=== PATIENT | male | born 1955 | race African-American/Black ===

== ENCOUNTER 2016-07-04 01:47 | Emergency (ER) | payer SELFPAY ==
[~2016-07-04] VITALS: Ht 185.4 cm; Wt 109.0 kg
[2016-07-04] MEDS ORDERED: HALOPERIDOL LACTATE 5MG/ML VIAL IM ONE (03:00)
[2016-07-04] MEDS ORDERED: LORAZEPAM 2MG/ML CPJ IM ONE (03:00)
[2016-07-04 03:15] LABS: BASOPHILS % 0.5 % (0.0-2.0); EOSINOPHILS % 0.4 % (0.0-5.0); HEMOGLOBIN. 13.2 g/dL (14.0-18.0); MEAN CORPUSCULAR HEMOGLOBIN 28.7 pg (28.0-32.0); MEAN PLATELET VOLUME 7.3 fl (7.4-10.4); MONOCYTES % 6.8 % (2.0-8.0); NEUTROPHILS % 77.3 % (40.0-76.0); PLATELET 241 x1000/uL (130-400); RED CELL DISTRIBUTION WIDTH 13.8 % (11.6-14.6); WHITE BLOOD COUNT 11.8 x1000/uL (4.5-11.0)
[2016-07-04 03:25] LABS: ALANINE AMINOTRANSFERASE 37 IU/L (13-61); ALBUMIN 3.8 g/dL (3.4-5.0); ANION GAP 14; CALCIUM 8.6 mg/dL (8.5-10.1); CARBON DIOXIDE 23 mEq/L (21-32); CHLORIDE 112 mEq/L (98-107); ETHANOL BLOOD < 10 mg/dL; INDEX HEMOLYSI 1 (1-3); INDEX ICTERIC 1 (1-4); INDEX LIPEMIC 1 (1-3); UREA NITROGEN BLOOD 27 mg/dL (7-21); eGFR > 60 mL/min (>60)
[2016-07-04 05:37] LABS: CLARITY URINE CLEAR (CLEAR); COLOR URINE YELLOW (YELLOW); GLUCOSE URINE NEGATIVE (NEGATIVE); KETONES URINE NEGATIVE (NEGATIVE); LEUKOCYTE ESTERASE URINE NEGATIVE (NEGATIVE); NITRITE URINE NEGATIVE (NEGATIVE); OCCULT BLOOD URINE NEGATIVE (NEGATIVE); PROTEIN URINE NEGATIVE (NEGATIVE); SPECIFIC GRAVITY URINE 1.022 (1.005-1.030)
[2016-07-04 06:11] LABS: *AMPHETAMINES SCREEN URINE NEGATIVE (NEGATIVE); *BARBITURATES SCREEN URINE NEGATIVE (NEGATIVE); *BENZODIAZEPINES SCREEN URINE NEGATIVE (NEGATIVE); *COCAINE SCREEN URINE PRESUMTIVE POSITIVE (NEGATIVE); CANNABINOID URINE SCREEN PRESUMTIVE POSITIVE (NEGATIVE); ECSTASY MDMA SCREEN URINE NEGATIVE (NEGATIVE); METHADONE URINE SCREEN NEGATIVE (NEGATIVE); OPIATES URINE SCREEN PRESUMTIVE POSITIVE (NEGATIVE); PHENCYCLIDINE URINE SCREEN PRESUMTIVE POSITIVE (NEGATIVE)
[2016-07-04 07:33] VITALS: BP 137/87
== END 2016-07-04 10:11 | disposition home or self-care (01) ==
LOC: ER 02:00
DX: T40.991A Poisoning by other psychodysleptics [hallucinogens], accidental (unintentional), initial encounter (principal); T40.5X1A Poisoning by cocaine, accidental (unintentional), initial encounter; T40.7X1A Poisoning by cannabis (derivatives), accidental (unintentional), initial encounter; T40.2X1A Poisoning by other opioids, accidental (unintentional), initial encounter; F16.921 Hallucinogen use, unspecified with intoxication with delirium; F10.229 Alcohol dependence with intoxication, unspecified; Y90.0 Blood alcohol level of less than 20 mg/100 ml; Y92.488 Other paved roadways as the place of occurrence of the external cause
CPT/HCPCS: 36415; 80053; 80305; 81003; 85025; 96372; 99284; G0482; J1630; J2060; Z7610

== ENCOUNTER 2016-07-04 11:41 | Emergency (ER) | payer SELFPAY ==
[~2016-07-04] VITALS: Ht 188 cm; Wt 86.0 kg
[2016-07-04 11:54] VITALS: BP 171/98
== END 2016-07-04 12:21 | disposition left against medical advice (07) ==
LOC: ER 11:49
DX: F19.10 Other psychoactive substance abuse, uncomplicated (principal); H10.9 Unspecified conjunctivitis; F99 Mental disorder, not otherwise specified; F12.10 Cannabis abuse, uncomplicated; I10 Essential (primary) hypertension; E11.9 Type 2 diabetes mellitus without complications
CPT/HCPCS: 99283

== ENCOUNTER 2017-12-06 15:51 | Inpatient (IN) | payer MEDICAID, OTHER ==
[~2017-12-06] VITALS: Ht 182.9 cm; Wt 113.2 kg
[2017-12-06 17:10] LABS: BASOPHILS % 0.3 % (0.0-2.0); CHLORIDE 106 mEq/L (98-107); EOSINOPHILS % 0.9 % (0.0-5.0); HEMATOCRIT. 42.1 % (42.0-52.0); HEMOGLOBIN. 13.6 g/dL (14.0-18.0); LYMPHOCYTES % 18.7 % (20.0-50.0); MEAN CORPUSCULAR HEMOGLOBIN 29.1 pg (28.0-32.0); MEAN CORPUSCULAR VOLUME 90.3 fL (80.0-94.0); MEAN PLATELET VOLUME 7.6 fl (7.4-10.4); MONOCYTES % 6.3 % (2.0-8.0); NEUTROPHILS % 73.8 % (40.0-76.0); PLATELET 247 x1000/uL (130-400); RED BLOOD CELL COUNT 4.66 mill/uL (4.7-6.1); RED CELL DISTRIBUTION WIDTH 14.8 % (11.6-14.6)
[2017-12-06 17:12] LABS: INR 1.1; PROTHROMBIN TIME 10.7 sec (9.1-11.1)
[2017-12-06] MEDS ORDERED: ACETAMINOPHEN 325MG TABLET PO ONE (18:15)
[2017-12-06] MEDS ORDERED: ONDANSETRON HCL 4MG/2ML VIAL IV STA (19:24)
[2017-12-06] MEDS ORDERED: MORPHINE SULFATE 4 MG/ML CPJ (NOT FOR IM USE) IV STA (19:24)
[2017-12-06] MEDS ORDERED: DILTIAZEM HCL 5MG/ML 5ML VIAL IV ONE (19:30)
[2017-12-06] MEDS ORDERED: NITROGLYCERIN OINT 1GM/INCH UDPKT TD ONE (19:30)
[2017-12-07 02:50] VITALS: BP 106/60
[2017-12-07] MEDS ORDERED: LORAZEPAM 2MG/ML CPJ IV PRN (03:45)
[2017-12-07] MEDS ORDERED: MORPHINE SULFATE 4 MG/ML CPJ (NOT FOR IM USE) IV PRN (03:45)
[2017-12-07 04:00] VITALS: BP 106/68
[2017-12-07] MEDS ORDERED: ONDANSETRON 4MG ODT PO PRN (04:15)
[2017-12-07] MEDS ORDERED: ENOXAPARIN 120MG/0.8ML SYR SUBCUT SCH (06:00)
[2017-12-07 07:23] LABS: BASOPHILS % 0.3 % (0.0-2.0); EOSINOPHILS % 1.3 % (0.0-5.0); HEMOGLOBIN. 13.1 g/dL (14.0-18.0); LYMPHOCYTES % 30.5 % (20.0-50.0); MEAN CORPUSCULAR HEMOGLOBIN 29.4 pg (28.0-32.0); MEAN PLATELET VOLUME 7.7 fl (7.4-10.4); NEUTROPHILS % 60.9 % (40.0-76.0); PLATELET 229 x1000/uL (130-400); RED BLOOD CELL COUNT 4.45 mill/uL (4.7-6.1); RED CELL DISTRIBUTION WIDTH 14.4 % (11.6-14.6)
[2017-12-07 08:00] VITALS: BP 115/62
[2017-12-07 08:00] LABS: CHLORIDE 109 mEq/L (98-107)
[2017-12-07] MEDS ORDERED: METOPROLOL TARTRATE 50MG TABLET PO SCH (09:00)
[2017-12-07] MEDS ORDERED: FUROSEMIDE 40MG TABLET PO SCH (09:00)
[2017-12-07] MEDS ORDERED: ASPIRIN 325MG EC TABLET PO SCH (09:00)
[2017-12-07] MEDS ORDERED: LISINOPRIL 5MG TABLET PO SCH (09:00)
[2017-12-07 09:03] LABS: *AMPHETAMINES SCREEN URINE PRESUMTIVE POSITIVE (NEGATIVE); *BARBITURATES SCREEN URINE NEGATIVE (NEGATIVE); *BENZODIAZEPINES SCREEN URINE NEGATIVE (NEGATIVE); *COCAINE SCREEN URINE PRESUMTIVE POSITIVE (NEGATIVE)
[2017-12-07 09:04] LABS: CANNABINOID URINE SCREEN PRESUMTIVE POSITIVE (NEGATIVE); METHADONE URINE SCREEN NEGATIVE (NEGATIVE); OPIATES URINE SCREEN PRESUMTIVE POSITIVE (NEGATIVE); PHENCYCLIDINE URINE SCREEN PRESUMTIVE POSITIVE (NEGATIVE)
[2017-12-07 10:52] LABS: T4 FREE 1.03 ng/dL (0.76-1.46)
[2017-12-07 12:00] VITALS: BP 97/66
[2017-12-07] MEDS ORDERED: IPRATROPIUM/ALBUTEROL 0.5-3(2.5)MG/3ML NEB HHN PRN (12:30)
[2017-12-07] MEDS ORDERED: DIGOXIN 500MCG/2ML AMP IV SCH (13:00)
[2017-12-07 16:00] VITALS: BP 123/80
[2017-12-07] MEDS ORDERED: HYDROCODONE/ACETAMINOPHEN 5/325MG TABLET PO PRN (16:45)
[2017-12-07 17:06] LABS: CREATINE KINASE MB FRACTION 1.5 ng/mL (0.5-3.6)
== END 2017-12-07 17:37 | disposition left against medical advice (07) | DRG 816 ==
LOC: ER 15:51 → 5WST 20:37 → ENRESERV 12-07 01:46
PROVIDERS: ADMIT Internal Medicine; ATTEND Internal Medicine
DX: T40.5X1A Poisoning by cocaine, accidental (unintentional), initial encounter (principal); I50.41 Acute combined systolic (congestive) and diastolic (congestive) heart failure; N17.9 Acute kidney failure, unspecified; I11.0 Hypertensive heart disease with heart failure; E44.1 Mild protein-calorie malnutrition; I48.91 Unspecified atrial fibrillation; E78.5 Hyperlipidemia, unspecified; F10.10 Alcohol abuse, uncomplicated; I73.9 Peripheral vascular disease, unspecified; F15.10 Other stimulant abuse, uncomplicated; F11.10 Opioid abuse, uncomplicated; F12.10 Cannabis abuse, uncomplicated; F17.210 Nicotine dependence, cigarettes, uncomplicated; M13.862 Other specified arthritis, left knee; Z71.51 Drug abuse counseling and surveillance of drug abuser; Z68.33 Body mass index [BMI] 33.0-33.9, adult; Y92.89 Other specified places as the place of occurrence of the external cause
CPT/HCPCS: 36415; 71045; 73562; 80048; 80053; 80061; 80305; 82550; 82553; 83036; 83880; 84439; 84443; 84484; 85025; 85379; 85610; 93005; 93306; 93970; 94640; 96372; 96374; 96375; 97162; 99285; J1160; J1650; J2270; J2405; J7620

== ENCOUNTER 2017-12-24 17:09 | Inpatient (IN) | payer MEDICAID, OTHER ==
[~2017-12-24] VITALS: Ht 182.9 cm; Wt 90.7 kg
[2017-12-24] MEDS ORDERED: SODIUM CHLORIDE 0.9% 1,000 ML IV ONE (17:49)
[2017-12-24 17:55] LABS: BASOPHILS % 0.7 % (0.0-2.0); EOSINOPHILS % 1.6 % (0.0-5.0); HEMOGLOBIN. 12.7 g/dL (14.0-18.0); LYMPHOCYTES % 22.6 % (20.0-50.0); MEAN CORPUSCULAR HEMOGLOBIN 29.2 pg (28.0-32.0); MEAN CORPUSCULAR VOLUME 89.6 fL (80.0-94.0); MONOCYTES % 8.6 % (2.0-8.0); NEUTROPHILS % 66.5 % (40.0-76.0); PLATELET 204 x1000/uL (130-400); RED BLOOD CELL COUNT 4.35 mill/uL (4.7-6.1); RED CELL DISTRIBUTION WIDTH 14.4 % (11.6-14.6)
[2017-12-24 18:00] LABS: CHLORIDE 110 mEq/L (98-107)
[2017-12-24] MEDS ORDERED: LORAZEPAM 2MG/ML CPJ IV ONE ×2 (18:00→20:15)
[2017-12-24] MEDS ORDERED: NITROGLYCERIN 0.4MG TABLET SL SL PRN (18:00)
[2017-12-24] MEDS ORDERED: ASPIRIN 81MG TABLET PO ONE (18:00)
[2017-12-24 18:02] LABS: INR 1.1; PROTHROMBIN TIME 11.1 sec (9.1-11.1)
[2017-12-24 18:06] LABS: ETHANOL BLOOD < 10 mg/dL
[2017-12-24 18:09] LABS: D-DIMER 1.21 mg/L FEU (<0.50); PARTIAL THROMBOPLASTIN TIME 25.6 sec (23.4-31.0)
[2017-12-24] MEDS ORDERED: FUROSEMIDE 20MG/2ML VIAL IVP ONE (19:15)
[2017-12-24 21:09] LABS: CLARITY URINE CLEAR (CLEAR); COLOR URINE YELLOW (YELLOW); KETONES URINE NEGATIVE (NEGATIVE); LEUKOCYTE ESTERASE URINE NEGATIVE (NEGATIVE); NITRITE URINE NEGATIVE (NEGATIVE); OCCULT BLOOD URINE NEGATIVE (NEGATIVE); PH URINE 5.5 (4.5-8.0); PROTEIN URINE NEGATIVE (NEGATIVE); SPECIFIC GRAVITY URINE 1.015 (1.005-1.030)
[2017-12-24 21:19] LABS: *BENZODIAZEPINES SCREEN URINE NEGATIVE (NEGATIVE); *COCAINE SCREEN URINE PRESUMTIVE POSITIVE (NEGATIVE)
[2017-12-24 21:20] LABS: *BARBITURATES SCREEN URINE NEGATIVE (NEGATIVE); CANNABINOID URINE SCREEN PRESUMTIVE POSITIVE (NEGATIVE); METHADONE URINE SCREEN NEGATIVE (NEGATIVE); OPIATES URINE SCREEN NEGATIVE (NEGATIVE); PHENCYCLIDINE URINE SCREEN PRESUMTIVE POSITIVE (NEGATIVE)
[2017-12-24 21:21] LABS: *AMPHETAMINES SCREEN URINE NEGATIVE (NEGATIVE)
[2017-12-24] MEDS ORDERED: IOHEXOL-350 100 ML BOTTLE ONE (21:29)
[2017-12-25 09:47] VITALS: BP 144/111
[2017-12-25 12:00] VITALS: BP 108/64
[2017-12-25] MEDS ORDERED: ASPIRIN 81MG TABLET PO SCH (12:00)
[2017-12-25] MEDS ORDERED: MORPHINE SULFATE 4 MG/ML CPJ (NOT FOR IM USE) IV PRN (12:00)
[2017-12-25 16:00] VITALS: BP 131/89
[2017-12-25] MEDS ORDERED: CLONIDINE 0.1MG TABLET PO PRN (16:15)
[2017-12-25] MEDS ORDERED: FUROSEMIDE 40MG TABLET PO SCH (21:00)
== END 2017-12-25 18:12 | disposition left against medical advice (07) | DRG 816 ==
LOC: ER 17:09 → 7WST 12-25 06:18 → EDBEDREQ 12-25 06:23 → EDBEDREQDT 12-25 06:23 → EDBEDREQTM 12-25 06:23 → ENRESERV 12-25 07:08
PROVIDERS: ADMIT Internal Medicine; ATTEND Internal Medicine
DX: T40.5X1A Poisoning by cocaine, accidental (unintentional), initial encounter (principal); I50.23 Acute on chronic systolic (congestive) heart failure; N17.9 Acute kidney failure, unspecified; E87.8 Other disorders of electrolyte and fluid balance, not elsewhere classified; I42.9 Cardiomyopathy, unspecified; E44.1 Mild protein-calorie malnutrition; I48.91 Unspecified atrial fibrillation; D64.9 Anemia, unspecified; I11.0 Hypertensive heart disease with heart failure; F17.200 Nicotine dependence, unspecified, uncomplicated; F14.188 Cocaine abuse with other cocaine-induced disorder; Y92.89 Other specified places as the place of occurrence of the external cause; Z68.27 Body mass index [BMI] 27.0-27.9, adult
CPT/HCPCS: 36415; 71045; 71275; 80053; 80305; 81003; 83880; 84484; 85025; 85379; 85610; 85730; 93005; 96361; 96374; 96375; 96376; 99285; G0482; J1940; J2060; J7030; Q9967

== ENCOUNTER 2018-02-10 13:12 | Inpatient (IN) | payer MEDICAID ==
[~2018-02-10] VITALS: Ht 185.4 cm; Wt 112.5 kg
[2018-02-10 14:17] LABS: BASOPHILS % 0.5 % (0.0-2.0); EOSINOPHILS % 1.2 % (0.0-5.0); HEMATOCRIT. 43.5 % (42.0-52.0); HEMOGLOBIN. 14.5 g/dL (14.0-18.0); LYMPHOCYTES % 27.5 % (20.0-50.0); MEAN CORPUSCULAR VOLUME 87.1 fL (80.0-94.0); MEAN PLATELET VOLUME 7.7 fl (7.4-10.4); NEUTROPHILS % 62.8 % (40.0-76.0); PLATELET 233 x1000/uL (130-400); RED BLOOD CELL COUNT 4.99 mill/uL (4.7-6.1); RED CELL DISTRIBUTION WIDTH 14.3 % (11.6-14.6)
[2018-02-10 14:24] LABS: INR 1.1; PARTIAL THROMBOPLASTIN TIME 27.9 sec (23.4-31.0); PROTHROMBIN TIME 11.3 sec (9.1-11.1)
[2018-02-10 14:26] LABS: CHLORIDE 109 mEq/L (98-107); ETHANOL BLOOD < 10 mg/dL
[2018-02-10] MEDS ORDERED: ASPIRIN 81MG TABLET PO ONE (14:30)
[2018-02-10] MEDS ORDERED: FUROSEMIDE 40MG/4ML VIAL IVP ONE (15:15)
[2018-02-10 19:51] LABS: *AMPHETAMINES SCREEN URINE NEGATIVE (NEGATIVE); *BARBITURATES SCREEN URINE NEGATIVE (NEGATIVE); *BENZODIAZEPINES SCREEN URINE NEGATIVE (NEGATIVE); *COCAINE SCREEN URINE PRESUMTIVE POSITIVE (NEGATIVE)
[2018-02-10 19:53] LABS: CANNABINOID URINE SCREEN PRESUMTIVE POSITIVE (NEGATIVE); METHADONE URINE SCREEN NEGATIVE (NEGATIVE); OPIATES URINE SCREEN NEGATIVE (NEGATIVE); PHENCYCLIDINE URINE SCREEN PRESUMTIVE POSITIVE (NEGATIVE)
[2018-02-10 21:50] VITALS: BP 137/94
[2018-02-10 22:35] VITALS: BP 137/94
[2018-02-11] VITALS: BP 124/69
[2018-02-11] MEDS ORDERED: ACETAMINOPHEN 650MG/20.3ML UDC PO PRN
[2018-02-11] MEDS ORDERED: ACETAMINOPHEN 325MG TABLET PO PRN (02:19)
[2018-02-11 04:00] VITALS: BP 109/66
[2018-02-11 07:15] LABS: CHLORIDE 106 mEq/L (98-107)
[2018-02-11 07:27] LABS: HEMATOCRIT. 47.6 % (42.0-52.0); HEMOGLOBIN. 15.3 g/dL (14.0-18.0); MEAN CORPUSCULAR HEMOGLOBIN 28.2 pg (28.0-32.0); MEAN CORPUSCULAR VOLUME 87.6 fL (80.0-94.0); MEAN PLATELET VOLUME 8.1 fl (7.4-10.4); PLATELET 247 x1000/uL (130-400); RED BLOOD CELL COUNT 5.43 mill/uL (4.7-6.1); RED CELL DISTRIBUTION WIDTH 14.4 % (11.6-14.6)
[2018-02-11 07:37] LABS: CREATINE KINASE 107 IU/L (39-308); CREATINE KINASE MB FRACTION 1.8 ng/mL (0.5-3.6)
[2018-02-11] MEDS: FUROSEMIDE 40MG/4ML VIAL IVP SCH (09:42)
[2018-02-11] MEDS: APIXABAN 5 MG TABLET PO SCH ×2 (09:42→17:25)
[2018-02-11 10:55] VITALS: BP 101/60
[2018-02-11 12:00] VITALS: BP 129/93
[2018-02-11] MEDS: DILTIAZEM HCL 60MG TABLET PO SCH ×2 (14:00→21:01)
[2018-02-11 14:09] LABS: PLATELET ESTIMATE NORMAL
[2018-02-11 20:00] VITALS: BP 120/75
[2018-02-11 20:05] LABS: CREATINE KINASE MB FRACTION 1.7 ng/mL (0.5-3.6)
[2018-02-11] MEDS: HYDROCODONE/ACETAMINOPHEN 5/325MG TABLET PO PRN (23:33)
[2018-02-12] VITALS: BP 126/72
[2018-02-12 08:00] VITALS: BP 113/83
[2018-02-12] MEDS: DILTIAZEM HCL 60MG TABLET PO SCH (08:05)
[2018-02-12] MEDS: FUROSEMIDE 40MG/4ML VIAL IVP SCH (08:17)
[2018-02-12] MEDS: HYDROCODONE/ACETAMINOPHEN 5/325MG TABLET PO PRN (08:18)
[2018-02-12] MEDS: APIXABAN 5 MG TABLET PO SCH (08:19)
[2018-02-12 09:38] LABS: CREATINE KINASE 85 IU/L (39-308)
[2018-02-12 09:40] LABS: CREATINE KINASE MB FRACTION 1.5 ng/mL (0.5-3.6)
[2018-02-12 12:00] VITALS: BP 107/69
[2018-02-12] MEDS ORDERED: DILTIAZEM HCL 30MG TABLET PO SCH (12:00)
[2018-02-12 13:48] VITALS: BP 107/69
[2018-02-12 16:00] VITALS: BP 103/76
== END 2018-02-12 16:26 | disposition home or self-care (01) | DRG 194 ==
LOC: EDBEDREQTM 15:28 → EDBEDREQ 15:28 → ER 15:58 → 5WST 15:59 → ENRESERV 19:32
PROVIDERS: ADMIT Internal Medicine; ATTEND Internal Medicine
DX: I13.0 Hypertensive heart and chronic kidney disease with heart failure and stage 1 through stage 4 chronic kidney disease, or unspecified chronic kidney disease (principal); E87.8 Other disorders of electrolyte and fluid balance, not elsewhere classified; Z79.01 Long term (current) use of anticoagulants; I50.23 Acute on chronic systolic (congestive) heart failure; I48.2 Chronic atrial fibrillation; F31.9 Bipolar disorder, unspecified; E78.5 Hyperlipidemia, unspecified; F14.90 Cocaine use, unspecified, uncomplicated; F16.90 Hallucinogen use, unspecified, uncomplicated; J45.909 Unspecified asthma, uncomplicated; N18.9 Chronic kidney disease, unspecified; Z91.19 Patient's noncompliance with other medical treatment and regimen; Z71.51 Drug abuse counseling and surveillance of drug abuser; I48.1 Persistent atrial fibrillation
CPT/HCPCS: 36415; 71045; 80048; 80305; 82550; 82553; 83735; 83880; 84484; 93005; 96374; 99291; G0482; J1940

== ENCOUNTER 2018-05-12 03:03 | Inpatient (IN) | payer MEDICAID ==
[~2018-05-12] VITALS: Ht 182.9 cm; Wt 102.2 kg
[2018-05-12] VITALS (38 sets, daily range): BP systolic 93–204; BP diastolic 39–173
[2018-05-12] MEDS ORDERED: ASPIRIN 81MG TABLET PO ONE (04:00)
[2018-05-12] MEDS ORDERED: LORAZEPAM 2MG/ML CPJ IV ONE (04:15)
[2018-05-12 04:42] LABS: BASOPHILS % 0.5 % (0.0-2.0); EOSINOPHILS % 1.1 % (0.0-5.0); HEMATOCRIT. 38.4 % (42.0-52.0); HEMOGLOBIN. 12.5 g/dL (14.0-18.0); LYMPHOCYTES % 23.3 % (20.0-50.0); MEAN CORPUSCULAR HEMOGLOBIN 28.8 pg (28.0-32.0); MEAN PLATELET VOLUME 7.5 fl (7.4-10.4); NEUTROPHILS % 67.1 % (40.0-76.0); PLATELET 198 x1000/uL (130-400); RED BLOOD CELL COUNT 4.36 mill/uL (4.7-6.1); RED CELL DISTRIBUTION WIDTH 15.4 % (11.6-14.6)
[2018-05-12 04:48] LABS: CHLORIDE 110 mEq/L (98-107)
[2018-05-12 04:51] LABS: INR 1.1; PARTIAL THROMBOPLASTIN TIME 27.3 sec (23.4-31.0); PROTHROMBIN TIME 11.3 sec (9.1-11.1)
[2018-05-12 04:53] LABS: ETHANOL BLOOD < 10 mg/dL
[2018-05-12] MEDS ORDERED: SODIUM CHLORIDE 0.9% 500 ML IV ONE (05:00)
[2018-05-12] MEDS ORDERED: DILTIAZEM HCL 5MG/ML 5ML VIAL IV ONE (06:00)
[2018-05-12] MEDS ORDERED: DILTIAZEM HCL 30MG TABLET PO ONE (06:00)
[2018-05-12 09:38] LABS: *AMPHETAMINES SCREEN URINE NEGATIVE (NEGATIVE); *BARBITURATES SCREEN URINE NEGATIVE (NEGATIVE); *BENZODIAZEPINES SCREEN URINE NEGATIVE (NEGATIVE); *COCAINE SCREEN URINE PRESUMTIVE POSITIVE (NEGATIVE); METHADONE URINE SCREEN NEGATIVE (NEGATIVE); OPIATES URINE SCREEN NEGATIVE (NEGATIVE)
[2018-05-12 09:39] LABS: CANNABINOID URINE SCREEN PRESUMTIVE POSITIVE (NEGATIVE); PHENCYCLIDINE URINE SCREEN PRESUMTIVE POSITIVE (NEGATIVE)
[2018-05-12] MEDS ORDERED: ASPI-1158 MT (13:19)
[2018-05-12] MEDS ORDERED: DILTIAZEM HCL 30MG TABLET PO SCH (14:00)
[2018-05-12] MEDS: LOSARTAN POTASSIUM 25 MG TABLET PO SCH (14:07)
[2018-05-12] MEDS ORDERED: DILTIAZEM HCL 5MG/ML 5ML VIAL IV NR ×2 (14:15→15:30)
[2018-05-12] MEDS ORDERED: DILTIAZEM HCL 5MG/ML 5ML VIAL IV PRN (14:15)
[2018-05-12] MEDS ORDERED: QUETIAPINE FUMARATE 50MG TABLET PO SCH (15:00)
[2018-05-12] MEDS ORDERED: DIPHENHYDRAMINE 50MG/ML VIAL IV NR (15:00)
[2018-05-12] MEDS ORDERED: HALOPERIDOL LACTATE 5MG/ML VIAL IM PRN (15:00)
[2018-05-12] MEDS: LORAZEPAM 2MG/ML CPJ IV PRN ×2 (15:11→21:16)
[2018-05-12] MEDS ORDERED: LORAZEPAM 2MG/ML CPJ IV PRN (15:15)
[2018-05-12] MEDS: QUETIAPINE FUMARATE 50MG TABLET PO SCH (17:35)
[2018-05-12] MEDS: DILTIAZEM HCL 125 MG in DEXT 5% WATER 100 ML IV SCH (18:23)
[2018-05-12] MEDS: HALOPERIDOL LACTATE 5MG/ML VIAL IM PRN (21:16)
[2018-05-12] MEDS: DILTIAZEM HCL 60MG TABLET PO SCH (22:00)
[2018-05-13] VITALS (95 sets, daily range): BP systolic 103–191; BP diastolic 45–130
[2018-05-13] MEDS: HALOPERIDOL LACTATE 5MG/ML VIAL IM PRN ×2 (03:29→20:34)
[2018-05-13] MEDS: LORAZEPAM 2MG/ML CPJ IV PRN ×5 (03:29→22:08)
[2018-05-13] MEDS: DEXT 5%/0.45% NACL 1000ML 1,000 ML IV SCH ×3 (05:45→23:25)
[2018-05-13] MEDS: DILTIAZEM HCL 60MG TABLET PO SCH ×3 (05:46→22:00)
[2018-05-13 06:41] LABS: BASOPHILS % 0.3 % (0.0-2.0); EOSINOPHILS % 0.5 % (0.0-5.0); HEMOGLOBIN. 12.6 g/dL (14.0-18.0); LYMPHOCYTES % 16.1 % (20.0-50.0); MEAN CORPUSCULAR HEMOGLOBIN 28.5 pg (28.0-32.0); MEAN CORPUSCULAR VOLUME 87.9 fL (80.0-94.0); MEAN PLATELET VOLUME 7.6 fl (7.4-10.4); MONOCYTES % 5.2 % (2.0-8.0); NEUTROPHILS % 77.9 % (40.0-76.0); PLATELET 208 x1000/uL (130-400); RED BLOOD CELL COUNT 4.44 mill/uL (4.7-6.1); RED CELL DISTRIBUTION WIDTH 15.8 % (11.6-14.6)
[2018-05-13 06:55] LABS: CHLORIDE 112 mEq/L (98-107)
[2018-05-13] MEDS: LOSARTAN POTASSIUM 25 MG TABLET PO SCH (09:00)
[2018-05-13] MEDS: QUETIAPINE FUMARATE 50MG TABLET PO SCH ×2 (09:00→16:45)
[2018-05-13] MEDS ORDERED: LIDOCAINE HCL 1% 20ML VIAL (Pyxis) INJ ONE (09:41)
[2018-05-13] MEDS: DILTIAZEM HCL 125 MG in DEXT 5% WATER 100 ML IV SCH (13:20)
[2018-05-13] MEDS: DIPHENHYDRAMINE 50MG/ML VIAL IV PRN (16:45)
[2018-05-14] VITALS (96 sets, daily range): BP systolic 95–155; BP diastolic 48–109
[2018-05-14] MEDS: LORAZEPAM 2MG/ML CPJ IV PRN ×4 (01:13→17:29)
[2018-05-14] MEDS: DILTIAZEM HCL 125 MG in DEXT 5% WATER 100 ML IV SCH (03:53)
[2018-05-14] MEDS: HALOPERIDOL LACTATE 5MG/ML VIAL IM PRN (04:43)
[2018-05-14] MEDS: DILTIAZEM HCL 60MG TABLET PO SCH ×3 (06:00→21:45)
[2018-05-14 06:03] LABS: BASOPHILS % 0.2 % (0.0-2.0); EOSINOPHILS % 0.3 % (0.0-5.0); HEMATOCRIT. 41.6 % (42.0-52.0); HEMOGLOBIN. 13.4 g/dL (14.0-18.0); LYMPHOCYTES % 16.6 % (20.0-50.0); MEAN CORPUSCULAR HEMOGLOBIN 28.6 pg (28.0-32.0); MEAN CORPUSCULAR VOLUME 89.1 fL (80.0-94.0); MEAN PLATELET VOLUME 7.7 fl (7.4-10.4); MONOCYTES % 7.2 % (2.0-8.0); NEUTROPHILS % 75.7 % (40.0-76.0); PLATELET 199 x1000/uL (130-400); RED BLOOD CELL COUNT 4.67 mill/uL (4.7-6.1); RED CELL DISTRIBUTION WIDTH 15.8 % (11.6-14.6)
[2018-05-14 06:07] LABS: CHLORIDE 109 mEq/L (98-107)
[2018-05-14] MEDS: LOSARTAN POTASSIUM 25 MG TABLET PO SCH (09:00)
[2018-05-14] MEDS: QUETIAPINE FUMARATE 50MG TABLET PO SCH ×2 (09:00→17:04)
[2018-05-14] MEDS: DEXT 5%/0.45% NACL 1000ML 1,000 ML IV SCH ×2 (09:27→19:47)
[2018-05-14] MEDS: PANTOPRAZOLE SODIUM 40 MG/VIAL IV SCH (09:27)
[2018-05-14] MEDS ORDERED: ENOXAPARIN 30MG/0.3ML SYR SUBCUT SCH (10:30)
[2018-05-14] MEDS ORDERED: ENOXAPARIN 80MG/0.8ML SYR SUBCUT NR (12:00)
[2018-05-14] MEDS: DIGOXIN 500MCG/2ML AMP IV SCH ×2 (12:57→17:57)
[2018-05-14] MEDS: ENOXAPARIN 120MG/0.8ML SYR SUBCUT SCH (20:29)
[2018-05-15] VITALS (59 sets, daily range): BP systolic 97–143; BP diastolic 39–90
[2018-05-15] MEDS: LORAZEPAM 2MG/ML CPJ IV PRN ×6 (00:30→22:32)
[2018-05-15] MEDS: DIPHENHYDRAMINE 50MG/ML VIAL IV PRN ×3 (02:24→16:59)
[2018-05-15] MEDS: DEXT 5%/0.45% NACL 1000ML 1,000 ML IV SCH ×2 (05:31→17:11)
[2018-05-15] MEDS: DILTIAZEM HCL 125 MG in DEXT 5% WATER 100 ML IV SCH (05:39)
[2018-05-15] MEDS: DILTIAZEM HCL 60MG TABLET PO SCH ×3 (05:40→22:00)
[2018-05-15 06:39] LABS: BASOPHILS % 0.3 % (0.0-2.0); HEMATOCRIT. 42.9 % (42.0-52.0); HEMOGLOBIN. 13.7 g/dL (14.0-18.0); MEAN CORPUSCULAR HEMOGLOBIN 28.7 pg (28.0-32.0); MEAN PLATELET VOLUME 7.7 fl (7.4-10.4); MONOCYTES % 6.3 % (2.0-8.0); NEUTROPHILS % 68.4 % (40.0-76.0); PLATELET 204 x1000/uL (130-400); RED BLOOD CELL COUNT 4.76 mill/uL (4.7-6.1); RED CELL DISTRIBUTION WIDTH 16.1 % (11.6-14.6)
[2018-05-15 06:43] LABS: CHLORIDE 110 mEq/L (98-107)
[2018-05-15 07:07] LABS: DIGOXIN 0.7 ng/mL (0.9-2.0)
[2018-05-15] MEDS: LOSARTAN POTASSIUM 25 MG TABLET PO SCH (07:54)
[2018-05-15] MEDS: QUETIAPINE FUMARATE 50MG TABLET PO SCH (07:54)
[2018-05-15] MEDS: PANTOPRAZOLE SODIUM 40 MG/VIAL IV SCH (07:54)
[2018-05-15] MEDS: ENOXAPARIN 120MG/0.8ML SYR SUBCUT SCH ×2 (07:55→20:32)
[2018-05-15] MEDS: HALOPERIDOL LACTATE 5MG/ML VIAL IM PRN ×2 (11:35→17:04)
[2018-05-15] MEDS ORDERED: FUROSEMIDE 40MG/4ML VIAL IVP SCH (13:00)
[2018-05-15] MEDS: ACETAMINOPHEN 325MG TABLET PO PRN (16:16)
[2018-05-15] MEDS: QUETIAPINE FUMARATE 100MG TABLET PO SCH (16:16)
[2018-05-15] MEDS: DIGOXIN 500MCG/2ML AMP IV SCH (16:18)
[2018-05-16] VITALS (39 sets, daily range): BP systolic 91–146; BP diastolic 46–85
[2018-05-16] MEDS: LORAZEPAM 2MG/ML CPJ IV PRN ×2 (01:42→20:58)
[2018-05-16] MEDS: DIPHENHYDRAMINE 50MG/ML VIAL IV PRN (01:58)
[2018-05-16] MEDS: HALOPERIDOL LACTATE 5MG/ML VIAL IM PRN (02:46)
[2018-05-16] MEDS: DILTIAZEM HCL 60MG TABLET PO SCH ×3 (06:00→20:58)
[2018-05-16 06:12] LABS: BASOPHILS % 0.6 % (0.0-2.0); EOSINOPHILS % 1.2 % (0.0-5.0); HEMATOCRIT. 42.5 % (42.0-52.0); HEMOGLOBIN. 13.8 g/dL (14.0-18.0); MEAN CORPUSCULAR HEMOGLOBIN 28.7 pg (28.0-32.0); MEAN CORPUSCULAR VOLUME 88.5 fL (80.0-94.0); MONOCYTES % 6.6 % (2.0-8.0); NEUTROPHILS % 67.6 % (40.0-76.0); PLATELET 253 x1000/uL (130-400); RED BLOOD CELL COUNT 4.81 mill/uL (4.7-6.1); RED CELL DISTRIBUTION WIDTH 15.8 % (11.6-14.6)
[2018-05-16 06:24] LABS: CHLORIDE 110 mEq/L (98-107)
[2018-05-16] MEDS: QUETIAPINE FUMARATE 100MG TABLET PO SCH ×2 (09:17→17:48)
[2018-05-16] MEDS: LOSARTAN POTASSIUM 25 MG TABLET PO SCH (09:17)
[2018-05-16] MEDS: ENOXAPARIN 120MG/0.8ML SYR SUBCUT SCH ×2 (09:17→21:00)
[2018-05-16] MEDS: PANTOPRAZOLE SODIUM 40 MG/VIAL IV SCH (09:18)
[2018-05-16] MEDS: DILTIAZEM HCL 125 MG in DEXT 5% WATER 100 ML IV SCH (16:00)
[2018-05-16] MEDS: DIGOXIN 500MCG/2ML AMP IV SCH (18:00)
[2018-05-17] VITALS (13 sets, daily range): BP systolic 108–156; BP diastolic 52–94
[2018-05-17] MEDS: LORAZEPAM 2MG/ML CPJ IV PRN ×3 (01:01→21:25)
[2018-05-17] MEDS: DILTIAZEM HCL 60MG TABLET PO SCH ×3 (05:55→21:05)
[2018-05-17 07:14] LABS: BASOPHILS % 0.2 % (0.0-2.0); EOSINOPHILS % 0.9 % (0.0-5.0); HEMATOCRIT. 43.7 % (42.0-52.0); HEMOGLOBIN. 14.4 g/dL (14.0-18.0); LYMPHOCYTES % 19.2 % (20.0-50.0); MEAN CORPUSCULAR VOLUME 88.3 fL (80.0-94.0); MEAN PLATELET VOLUME 7.9 fl (7.4-10.4); MONOCYTES % 5.8 % (2.0-8.0); NEUTROPHILS % 73.9 % (40.0-76.0); PLATELET 277 x1000/uL (130-400); RED BLOOD CELL COUNT 4.96 mill/uL (4.7-6.1); RED CELL DISTRIBUTION WIDTH 15.5 % (11.6-14.6)
[2018-05-17 07:16] LABS: CHLORIDE 107 mEq/L (98-107)
[2018-05-17] MEDS: QUETIAPINE FUMARATE 100MG TABLET PO SCH (09:44)
[2018-05-17] MEDS: LOSARTAN POTASSIUM 25 MG TABLET PO SCH (09:44)
[2018-05-17] MEDS: PANTOPRAZOLE SODIUM 40 MG/VIAL IV SCH (09:44)
[2018-05-17] MEDS: ENOXAPARIN 120MG/0.8ML SYR SUBCUT SCH (09:46)
[2018-05-17] MEDS ORDERED: DILTIAZEM HCL 125 MG in DEXT 5% WATER 100 ML IV PRN (15:30)
[2018-05-17] MEDS ORDERED: QUETIAPINE FUMARATE 50MG TABLET PO SCH (17:00)
[2018-05-17] MEDS: DIGOXIN 500MCG/2ML AMP IV SCH (18:57)
[2018-05-17] MEDS: APIXABAN 5 MG TABLET PO SCH (21:05)
[2018-05-18] VITALS: BP 146/68
[2018-05-18] MEDS: DIPHENHYDRAMINE 50MG/ML VIAL IV PRN ×4 (01:24→21:56)
[2018-05-18] MEDS: LORAZEPAM 2MG/ML CPJ IV PRN ×4 (02:31→21:56)
[2018-05-18] MEDS: ONDANSETRON HCL 4MG/2ML INJ IV PRN ×2 (04:49→22:30)
[2018-05-18] MEDS: DILTIAZEM HCL 60MG TABLET PO SCH ×3 (06:00→21:55)
[2018-05-18 08:00] VITALS: BP 120/95
[2018-05-18] MEDS: APIXABAN 5 MG TABLET PO SCH ×2 (09:00→21:55)
[2018-05-18] MEDS: PANTOPRAZOLE SODIUM 40 MG/VIAL IV SCH (09:00)
[2018-05-18] MEDS: LOSARTAN POTASSIUM 25 MG TABLET PO SCH (09:00)
[2018-05-18 09:29] LABS: BASOPHILS % 0.3 % (0.0-2.0); EOSINOPHILS % 0.9 % (0.0-5.0); HEMATOCRIT. 45.4 % (42.0-52.0); HEMOGLOBIN. 14.6 g/dL (14.0-18.0); LYMPHOCYTES % 20.4 % (20.0-50.0); MEAN CORPUSCULAR HEMOGLOBIN 28.4 pg (28.0-32.0); MEAN CORPUSCULAR VOLUME 88.7 fL (80.0-94.0); MEAN PLATELET VOLUME 7.8 fl (7.4-10.4); MONOCYTES % 6.6 % (2.0-8.0); NEUTROPHILS % 71.8 % (40.0-76.0); PLATELET 245 x1000/uL (130-400); RED BLOOD CELL COUNT 5.12 mill/uL (4.7-6.1); RED CELL DISTRIBUTION WIDTH 15.2 % (11.6-14.6)
[2018-05-18 11:02] LABS: CHLORIDE 108 mEq/L (98-107)
[2018-05-18 12:00] VITALS: BP 140/55
[2018-05-18] MEDS ORDERED: SODIUM POLYSTYRENE SULFONATE 15 G/60 ML BOT PO NR (13:30)
[2018-05-18] MEDS: HALOPERIDOL 5MG TABLET PO PRN (14:00)
[2018-05-18 16:00] VITALS: BP 126/81
[2018-05-18] MEDS: QUETIAPINE FUMARATE 50MG TABLET PO SCH (17:00)
[2018-05-18] MEDS: DIGOXIN 250MCG TABLET PO SCH (18:00)
[2018-05-18 20:00] VITALS: BP 143/78
[2018-05-19] VITALS (13 sets, daily range): BP systolic 102–157; BP diastolic 49–75
[2018-05-19] MEDS: LORAZEPAM 2MG/ML CPJ IV PRN ×4 (02:57→18:25)
[2018-05-19 07:36] LABS: CHLORIDE 106 mEq/L (98-107)
[2018-05-19] MEDS: DIPHENHYDRAMINE 50MG/ML VIAL IV PRN ×2 (10:04→18:25)
[2018-05-19] MEDS: APIXABAN 5 MG TABLET PO SCH ×2 (10:05→21:20)
[2018-05-19] MEDS: LOSARTAN POTASSIUM 25 MG TABLET PO SCH (10:05)
[2018-05-19] MEDS: PANTOPRAZOLE SODIUM 40 MG/VIAL IV SCH (10:06)
[2018-05-19] MEDS: QUETIAPINE FUMARATE 50MG TABLET PO SCH ×2 (11:09→17:55)
[2018-05-19] MEDS: DILTIAZEM HCL 60MG TABLET PO SCH ×2 (13:46→21:20)
[2018-05-19] MEDS: DIGOXIN 250MCG TABLET PO SCH (17:55)
[2018-05-20] VITALS: BP 119/70
[2018-05-20 02:00] VITALS: BP 112/60
[2018-05-20 04:00] VITALS: BP 110/70
[2018-05-20] MEDS: DILTIAZEM HCL 60MG TABLET PO SCH ×3 (05:48→20:37)
[2018-05-20] MEDS: HALOPERIDOL 5MG TABLET PO PRN ×2 (05:49→20:33)
[2018-05-20] MEDS: LORAZEPAM 2MG/ML CPJ IV PRN ×2 (07:36→20:33)
[2018-05-20] MEDS: DIPHENHYDRAMINE 50MG/ML VIAL IV PRN ×2 (07:45→20:33)
[2018-05-20 07:59] LABS: BASOPHILS % 0.2 % (0.0-2.0); EOSINOPHILS % 0.7 % (0.0-5.0); HEMATOCRIT. 46.7 % (42.0-52.0); HEMOGLOBIN. 15.1 g/dL (14.0-18.0); LYMPHOCYTES % 24.4 % (20.0-50.0); MEAN CORPUSCULAR HEMOGLOBIN 28.5 pg (28.0-32.0); MEAN CORPUSCULAR VOLUME 88.2 fL (80.0-94.0); MEAN PLATELET VOLUME 7.5 fl (7.4-10.4); MONOCYTES % 6.7 % (2.0-8.0); PLATELET 292 x1000/uL (130-400); RED CELL DISTRIBUTION WIDTH 15.3 % (11.6-14.6)
[2018-05-20 08:00] VITALS: BP 126/50
[2018-05-20 08:11] LABS: CHLORIDE 105 mEq/L (98-107)
[2018-05-20] MEDS: LOSARTAN POTASSIUM 25 MG TABLET PO SCH (08:42)
[2018-05-20] MEDS: QUETIAPINE FUMARATE 50MG TABLET PO SCH ×4 (08:42→20:37)
[2018-05-20] MEDS: PANTOPRAZOLE SODIUM 40 MG/VIAL IV SCH (08:42)
[2018-05-20] MEDS: APIXABAN 5 MG TABLET PO SCH ×2 (08:42→20:33)
[2018-05-20 12:00] VITALS: BP 126/84
[2018-05-20 16:00] VITALS: BP 123/51
[2018-05-20] MEDS: DIGOXIN 250MCG TABLET PO SCH (17:25)
[2018-05-21] MEDS: DILTIAZEM HCL 60MG TABLET PO SCH ×3 (05:22→20:58)
[2018-05-21] MEDS: LORAZEPAM 2MG/ML CPJ IV PRN ×4 (05:22→20:59)
[2018-05-21 08:00] VITALS: BP 120/65
[2018-05-21] MEDS: APIXABAN 5 MG TABLET PO SCH ×2 (09:23→20:59)
[2018-05-21] MEDS: LOSARTAN POTASSIUM 25 MG TABLET PO SCH (09:23)
[2018-05-21] MEDS: QUETIAPINE FUMARATE 50MG TABLET PO SCH ×2 (09:24→17:53)
[2018-05-21] MEDS: PANTOPRAZOLE SODIUM 40 MG/VIAL IV SCH (09:24)
[2018-05-21 12:00] VITALS: BP 98/55
[2018-05-21 16:00] VITALS: BP 110/55
[2018-05-21] MEDS: DIGOXIN 250MCG TABLET PO SCH (17:53)
[2018-05-21 20:00] VITALS: BP 111/54
[2018-05-21] MEDS: HALOPERIDOL 5MG TABLET PO PRN (20:56)
[2018-05-21] MEDS: NEOMY SULF/BACITRAC ZN/POLY OINT 28GM TOP SCH (20:57)
[2018-05-22 06:16] VITALS: BP 120/70
[2018-05-22] MEDS: HALOPERIDOL 5MG TABLET PO PRN (06:20)
[2018-05-22] MEDS: DILTIAZEM HCL 60MG TABLET PO SCH ×3 (06:21→22:00)
[2018-05-22] MEDS: LORAZEPAM 2MG/ML CPJ IV PRN ×2 (06:21→17:17)
[2018-05-22] MEDS: ACETAMINOPHEN 325MG TABLET PO PRN (08:46)
[2018-05-22] MEDS: APIXABAN 5 MG TABLET PO SCH ×2 (08:46→22:35)
[2018-05-22] MEDS: QUETIAPINE FUMARATE 50MG TABLET PO SCH ×2 (08:46→17:17)
[2018-05-22] MEDS: PANTOPRAZOLE SODIUM 40 MG/VIAL IV SCH (08:47)
[2018-05-22] MEDS: LOSARTAN POTASSIUM 25 MG TABLET PO SCH (08:47)
[2018-05-22] MEDS: NEOMY SULF/BACITRAC ZN/POLY OINT 28GM TOP SCH ×2 (09:00→22:36)
[2018-05-22] MEDS: DIGOXIN 250MCG TABLET PO SCH (17:17)
[2018-05-22] MEDS: THIAMINE HCL 100MG TABLET PO SCH (17:22)
[2018-05-22] MEDS: FOLIC ACID 1MG TABLET PO SCH (17:22)
[2018-05-22] MEDS: MULTIVITAMINS,THER W-MINERALS TABLET PO SCH (17:22)
[2018-05-22 18:06] LABS: T4 FREE 1.01 ng/dL (0.76-1.46)
[2018-05-22 18:16] LABS: FOLIC ACID (FOLATE) SERUM 17.5 ng/mL (>5.38)
[2018-05-22 22:33] VITALS: BP 103/43
[2018-05-23 06:39] VITALS: BP 128/76
[2018-05-23] MEDS: DILTIAZEM HCL 60MG TABLET PO SCH ×3 (06:43→18:47)
[2018-05-23] MEDS: LOSARTAN POTASSIUM 25 MG TABLET PO SCH (08:51)
[2018-05-23] MEDS: THIAMINE HCL 100MG TABLET PO SCH (08:51)
[2018-05-23] MEDS: FOLIC ACID 1MG TABLET PO SCH (08:51)
[2018-05-23] MEDS: QUETIAPINE FUMARATE 50MG TABLET PO SCH ×2 (08:51→20:41)
[2018-05-23] MEDS: MULTIVITAMINS,THER W-MINERALS TABLET PO SCH (08:51)
[2018-05-23] MEDS: LORAZEPAM 2MG/ML CPJ IV PRN (08:52)
[2018-05-23] MEDS: PANTOPRAZOLE SODIUM 40 MG/VIAL IV SCH (08:52)
[2018-05-23] MEDS: NEOMY SULF/BACITRAC ZN/POLY OINT 28GM TOP SCH ×3 (09:02→22:36)
[2018-05-23] MEDS: APIXABAN 5 MG TABLET PO SCH ×2 (09:02→20:33)
[2018-05-23 12:10] VITALS: BP 121/68
[2018-05-23] MEDS ORDERED: MECLIZINE 25MG TABLET PO PRN (13:15)
[2018-05-23 16:32] VITALS: BP 142/68
[2018-05-23] MEDS: DIGOXIN 250MCG TABLET PO SCH (18:46)
[2018-05-23 20:00] VITALS: BP 122/51
[2018-05-23] MEDS: HALOPERIDOL 5MG TABLET PO PRN (20:33)
[2018-05-24] VITALS: BP 106/59
[2018-05-24 04:00] VITALS: BP 89/59
[2018-05-24 05:36] VITALS: BP 98/60
[2018-05-24] MEDS: DILTIAZEM HCL 60MG TABLET PO SCH ×2 (05:37→12:19)
[2018-05-24 08:00] VITALS: BP 92/70
[2018-05-24] MEDS: PANTOPRAZOLE SODIUM 40 MG/VIAL IV SCH (08:01)
[2018-05-24] MEDS: QUETIAPINE FUMARATE 50MG TABLET PO SCH (08:01)
[2018-05-24] MEDS: FOLIC ACID 1MG TABLET PO SCH (08:01)
[2018-05-24] MEDS: THIAMINE HCL 100MG TABLET PO SCH (08:01)
[2018-05-24] MEDS: LOSARTAN POTASSIUM 25 MG TABLET PO SCH (08:02)
[2018-05-24] MEDS: APIXABAN 5 MG TABLET PO SCH (08:03)
[2018-05-24] MEDS: NEOMY SULF/BACITRAC ZN/POLY OINT 28GM TOP SCH (09:00)
[2018-05-24 12:00] VITALS: BP 121/82
[2018-05-24] MEDS: MULTIVITAMINS,THER W-MINERALS TABLET PO SCH (12:19)
[2018-05-24 14:36] VITALS: BP 121/82
== END 2018-05-24 14:57 | disposition home or self-care (01) | DRG 201 ==
LOC: ER 03:03 → 7WST 06:04 → EDBEDREQ 06:17 → EDBEDREQTM 06:17 → ENRESERV 08:47 → CVICU 14:53 → 5EST 05-16 15:25 → 7WST 05-22 14:43
PROVIDERS: ADMIT Internal Medicine; ATTEND Internal Medicine
PROC: 02HV33Z Insertion of Infusion Device into Superior Vena Cava, Percutaneous Approach (ICD-10-PCS; principal; 2018-05-13)
PROC: B548ZZA Ultrasonography of Superior Vena Cava, Guidance (ICD-10-PCS; 2018-05-13)
DX: I48.1 Persistent atrial fibrillation (principal); G92 Toxic encephalopathy; E87.8 Other disorders of electrolyte and fluid balance, not elsewhere classified; I42.9 Cardiomyopathy, unspecified; E87.5 Hyperkalemia; I11.0 Hypertensive heart disease with heart failure; I50.42 Chronic combined systolic (congestive) and diastolic (congestive) heart failure; D64.9 Anemia, unspecified; S61.511A Laceration without foreign body of right wrist, initial encounter; E86.0 Dehydration; Z78.1 Physical restraint status; S01.111A Laceration without foreign body of right eyelid and periocular area, initial encounter; W18.39XA Other fall on same level, initial encounter; F14.10 Cocaine abuse, uncomplicated; F17.200 Nicotine dependence, unspecified, uncomplicated; E66.9 Obesity, unspecified; F31.9 Bipolar disorder, unspecified; F12.10 Cannabis abuse, uncomplicated; Z91.14 Patient's other noncompliance with medication regimen; Y93.89 Activity, other specified; Y92.89 Other specified places as the place of occurrence of the external cause; Y99.8 Other external cause status; Z91.19 Patient's noncompliance with other medical treatment and regimen; Z71.51 Drug abuse counseling and surveillance of drug abuser; Z68.30 Body mass index [BMI] 30.0-30.9, adult
CPT/HCPCS: 36415; 36569; 71045; 76937; 80048; 80162; 80305; 82140; 82607; 82746; 83036; 83735; 83880; 84439; 84443; 84481; 84484; 93005; 93306; 96361; 96374; 96375; 97116; 97163; 99285; C1725; C1893; C9113; G0482; J1160; J1200; J1630; J1650; J1940; J2060; J2405; J3490; J7040; J7060; J8597

== ENCOUNTER 2018-06-02 22:59 | Emergency (ER) | payer MEDICAID ==
[~2018-06-02] VITALS: Ht 182.9 cm; Wt 104.0 kg
[2018-06-02 23:01] VITALS: BP 136/98
== END 2018-06-03 00:44 | disposition left against medical advice (07) ==
LOC: ER 22:59
DX: R00.2 Palpitations (principal); I11.9 Hypertensive heart disease without heart failure; I48.91 Unspecified atrial fibrillation
CPT/HCPCS: 99283

== ENCOUNTER 2018-06-03 01:01 | Emergency (ER) | payer MEDICAID ==
[~2018-06-03] VITALS: Ht 182.9 cm; Wt 100.0 kg
[2018-06-03] MEDS ORDERED: ASPIRIN 81MG TABLET PO ONE (05:15)
[2018-06-03 05:51] LABS: CHLORIDE 110 mEq/L (98-107)
[2018-06-03 06:11] LABS: BASOPHILS % 0.2 % (0.0-2.0); EOSINOPHILS % 1.7 % (0.0-5.0); HEMATOCRIT. 38.7 % (42.0-52.0); HEMOGLOBIN. 12.4 g/dL (14.0-18.0); LYMPHOCYTES % 14.8 % (20.0-50.0); MEAN CORPUSCULAR HEMOGLOBIN 28.6 pg (28.0-32.0); MEAN PLATELET VOLUME 7.6 fl (7.4-10.4); MONOCYTES % 8.5 % (2.0-8.0); NEUTROPHILS % 74.8 % (40.0-76.0); PLATELET 283 x1000/uL (130-400); RED BLOOD CELL COUNT 4.35 mill/uL (4.7-6.1); RED CELL DISTRIBUTION WIDTH 16.1 % (11.6-14.6)
[2018-06-03 09:36] LABS: *AMPHETAMINES SCREEN URINE NEGATIVE (NEGATIVE); *BARBITURATES SCREEN URINE NEGATIVE (NEGATIVE); *BENZODIAZEPINES SCREEN URINE NEGATIVE (NEGATIVE); *COCAINE SCREEN URINE PRESUMTIVE POSITIVE (NEGATIVE); METHADONE URINE SCREEN NEGATIVE (NEGATIVE); OPIATES URINE SCREEN NEGATIVE (NEGATIVE)
[2018-06-03 09:37] LABS: CANNABINOID URINE SCREEN PRESUMTIVE POSITIVE (NEGATIVE); PHENCYCLIDINE URINE SCREEN PRESUMTIVE POSITIVE (NEGATIVE)
[2018-06-03] MEDS ORDERED: DEXTROSE 50% WATER 50ML SYRINGE IV ONE ×3 (11:05→11:19)
[2018-06-03] MEDS ORDERED: ONDANSETRON HCL 4MG/2ML INJ ONE (11:26)
[2018-06-03 14:30] VITALS: BP 101/70
[2018-06-03] MEDS ORDERED: GUAIFENESIN 200MG/10ML SUGAR FREE UDC PO PRN (16:45)
[2018-06-03] MEDS ORDERED: MAGNESIUM/ALUMINUM HYDROXIDE/SIMETHICONE 30ML UDC PO PRN (16:45)
[2018-06-03] MEDS ORDERED: CLONIDINE 0.1MG TABLET PO PRN (16:45)
[2018-06-03] MEDS ORDERED: IPRATROPIUM/ALBUTEROL 0.5-3(2.5)MG/3ML NEB INH PRN (16:45)
[2018-06-03] MEDS ORDERED: LORAZEPAM 0.5MG TABLET PO PRN (16:45)
[2018-06-03] MEDS ORDERED: ONDANSETRON HCL 4MG/2ML INJ IV PRN (16:45)
[2018-06-03] MEDS ORDERED: ACETAMINOPHEN 325MG TABLET PO PRN (16:45)
[2018-06-03] MEDS ORDERED: FUROSEMIDE 40MG/4ML VIAL IVP SCH (17:00)
[2018-06-03] MEDS ORDERED: APIXABAN 5 MG TABLET PO SCH (17:00)
[2018-06-03] MEDS ORDERED: DIGOXIN 250MCG TABLET PO SCH (18:00)
[2018-06-03] MEDS ORDERED: QUETIAPINE FUMARATE 100MG TABLET PO SCH (21:00)
[2018-06-03] MEDS ORDERED: SODIUM CHLORIDE 0.9% INJ 3ML FLUSH IVF SCH (22:00)
== END 2018-06-03 15:10 | disposition left against medical advice (07) ==
LOC: ER 01:01 → CANBEDREQ 15:44
DX: T46.3X5A Adverse effect of coronary vasodilators, initial encounter (principal); R60.0 Localized edema; R07.89 Other chest pain; I50.23 Acute on chronic systolic (congestive) heart failure; I48.2 Chronic atrial fibrillation; F31.9 Bipolar disorder, unspecified; Z91.19 Patient's noncompliance with other medical treatment and regimen; Z79.899 Other long term (current) drug therapy; Z79.01 Long term (current) use of anticoagulants; Y92.89 Other specified places as the place of occurrence of the external cause
CPT/HCPCS: 36415; 71045; 80053; 80305; 83880; 84484; 85025; 93005; 99284; J2405; Z7610

== ENCOUNTER 2018-06-05 16:06 | Inpatient (IN) | payer MEDICAID ==
[~2018-06-05] VITALS: Ht 182.9 cm; Wt 108.4 kg
[2018-06-05] MEDS ORDERED: DILTIAZEM HCL 5MG/ML 5ML VIAL IV ONE (17:45)
[2018-06-05] MEDS ORDERED: DILTIAZEM HCL 60MG TABLET PO ONE (17:45)
[2018-06-05 17:58] LABS: BASOPHILS % 0.6 % (0.0-2.0); EOSINOPHILS % 0.7 % (0.0-5.0); HEMATOCRIT. 37.6 % (42.0-52.0); HEMOGLOBIN. 12.1 g/dL (14.0-18.0); LYMPHOCYTES % 24.7 % (20.0-50.0); MEAN CORPUSCULAR HEMOGLOBIN 28.7 pg (28.0-32.0); MEAN CORPUSCULAR VOLUME 89.1 fL (80.0-94.0); MEAN PLATELET VOLUME 7.7 fl (7.4-10.4); MONOCYTES % 7.5 % (2.0-8.0); NEUTROPHILS % 66.5 % (40.0-76.0); PLATELET 243 x1000/uL (130-400); RED BLOOD CELL COUNT 4.22 mill/uL (4.7-6.1); RED CELL DISTRIBUTION WIDTH 16.6 % (11.6-14.6)
[2018-06-05 18:05] LABS: CHLORIDE 113 mEq/L (98-107)
[2018-06-05] MEDS ORDERED: ENOXAPARIN 80MG/0.8ML SYR SUBCUT ONE (19:00)
[2018-06-05] MEDS ORDERED: MAGNESIUM/ALUMINUM HYDROXIDE/SIMETHICONE 30ML UDC PO PRN (19:45)
[2018-06-05] MEDS ORDERED: CLONIDINE 0.1MG TABLET PO PRN (19:45)
[2018-06-05] MEDS ORDERED: DOCUSATE SODIUM 100MG CAPSULE PO PRN (19:45)
[2018-06-05] MEDS ORDERED: IPRATROPIUM/ALBUTEROL 0.5-3(2.5)MG/3ML NEB INH PRN (19:45)
[2018-06-05] MEDS ORDERED: DILTIAZEM HCL 30MG TABLET PO NR (23:00)
[2018-06-05] MEDS: LORAZEPAM 2MG/ML CPJ IV PRN (23:21)
[2018-06-06] MEDS ORDERED: DILTIAZEM HCL 30MG TABLET PO SCH
[2018-06-06 05:41] LABS: BASOPHILS % 0.4 % (0.0-2.0); EOSINOPHILS % 0.9 % (0.0-5.0); HEMATOCRIT. 36.3 % (42.0-52.0); HEMOGLOBIN. 11.7 g/dL (14.0-18.0); LYMPHOCYTES % 21.2 % (20.0-50.0); MEAN CORPUSCULAR HEMOGLOBIN 28.7 pg (28.0-32.0); MEAN CORPUSCULAR VOLUME 89.1 fL (80.0-94.0); MEAN PLATELET VOLUME 7.7 fl (7.4-10.4); MONOCYTES % 8.7 % (2.0-8.0); NEUTROPHILS % 68.8 % (40.0-76.0); PLATELET 232 x1000/uL (130-400); RED BLOOD CELL COUNT 4.07 mill/uL (4.7-6.1); RED CELL DISTRIBUTION WIDTH 16.6 % (11.6-14.6)
[2018-06-06 05:45] LABS: CHLORIDE 110 mEq/L (98-107)
[2018-06-06 05:52] LABS: T4 FREE 0.97 ng/dL (0.76-1.46)
[2018-06-06] MEDS ORDERED: DILTIAZEM HCL 60MG TABLET PO SCH ×2 (08:00→12:00)
[2018-06-06] MEDS: PANTOPRAZOLE SODIUM 40 MG/VIAL IV SCH (08:54)
[2018-06-06] MEDS ORDERED: ENOXAPARIN 40MG/0.4ML SYR SUBCUT SCH (09:00)
[2018-06-06] MEDS: ACETAMINOPHEN 325MG TABLET PO PRN (09:25)
[2018-06-06] MEDS ORDERED: DIGOXIN 500MCG/2ML AMP IV ONE (10:45)
[2018-06-06] MEDS: LORAZEPAM 2MG/ML CPJ IV PRN ×2 (13:10→20:00)
[2018-06-06 16:30] VITALS: BP 126/52
[2018-06-06] MEDS ORDERED: DIGOXIN 500MCG/2ML AMP IV NR ×3 (17:30→23:00)
[2018-06-06] MEDS ORDERED: RIVAROXABAN 20 MG TABLET PO SCH (18:00)
[2018-06-06] MEDS: DILTIAZEM HCL 60MG TABLET PO SCH ×2 (20:16→23:48)
[2018-06-07 00:29] VITALS: BP 92/66
[2018-06-07 04:00] VITALS: BP 121/76
[2018-06-07] MEDS: LORAZEPAM 2MG/ML CPJ IV PRN ×3 (04:56→13:45)
[2018-06-07] MEDS: DILTIAZEM HCL 60MG TABLET PO SCH ×2 (05:05→12:56)
[2018-06-07 05:11] VITALS: BP 123/71
[2018-06-07 06:53] LABS: BASOPHILS % 0.5 % (0.0-2.0); EOSINOPHILS % 0.9 % (0.0-5.0); HEMATOCRIT. 37.2 % (42.0-52.0); LYMPHOCYTES % 24.3 % (20.0-50.0); MEAN CORPUSCULAR HEMOGLOBIN 28.8 pg (28.0-32.0); MEAN CORPUSCULAR VOLUME 89.2 fL (80.0-94.0); MEAN PLATELET VOLUME 7.9 fl (7.4-10.4); MONOCYTES % 8.4 % (2.0-8.0); NEUTROPHILS % 65.9 % (40.0-76.0); PLATELET 221 x1000/uL (130-400); RED BLOOD CELL COUNT 4.17 mill/uL (4.7-6.1); RED CELL DISTRIBUTION WIDTH 16.5 % (11.6-14.6)
[2018-06-07 07:11] LABS: CHLORIDE 107 mEq/L (98-107)
[2018-06-07 08:16] VITALS: BP 120/64
[2018-06-07] MEDS: PANTOPRAZOLE SODIUM 40 MG/VIAL IV SCH (08:41)
[2018-06-07] MEDS: ACETAMINOPHEN 325MG TABLET PO PRN (12:46)
== END 2018-06-07 16:52 | disposition home or self-care (01) | DRG 201 ==
LOC: ER 16:06 → 6WST 19:09 → ENRESERV 06-06 14:08
PROVIDERS: ADMIT Family Medicine Adult Medicine; ATTEND Family Medicine Adult Medicine
DX: I48.91 Unspecified atrial fibrillation (principal); I42.0 Dilated cardiomyopathy; E87.8 Other disorders of electrolyte and fluid balance, not elsewhere classified; E44.1 Mild protein-calorie malnutrition; E83.51 Hypocalcemia; F31.9 Bipolar disorder, unspecified; N28.9 Disorder of kidney and ureter, unspecified; F19.10 Other psychoactive substance abuse, uncomplicated; I10 Essential (primary) hypertension; I25.10 Atherosclerotic heart disease of native coronary artery without angina pectoris; Z91.19 Patient's noncompliance with other medical treatment and regimen; Z91.14 Patient's other noncompliance with medication regimen; Z86.59 Personal history of other mental and behavioral disorders; Z87.898 Personal history of other specified conditions; Z59.0 Homelessness
CPT/HCPCS: 36415; 71045; 80048; 83735; 83880; 84439; 84443; 84484; 93005; 96372; 96374; 99291; C9113; J1160; J1650; J2060; J3490

== ENCOUNTER 2018-06-16 02:56 | Inpatient (IN) | payer MEDICAID ==
[~2018-06-16] VITALS: Ht 182.9 cm; Wt 114.3 kg
[2018-06-16 03:41] LABS: BASOPHILS % 0.6 % (0.0-2.0); HEMATOCRIT. 41.5 % (42.0-52.0); HEMOGLOBIN. 13.4 g/dL (14.0-18.0); MEAN CORPUSCULAR HEMOGLOBIN 28.8 pg (28.0-32.0); MEAN CORPUSCULAR VOLUME 89.1 fL (80.0-94.0); MEAN PLATELET VOLUME 7.4 fl (7.4-10.4); MONOCYTES % 6.8 % (2.0-8.0); NEUTROPHILS % 68.6 % (40.0-76.0); PLATELET 288 x1000/uL (130-400); RED BLOOD CELL COUNT 4.66 mill/uL (4.7-6.1); RED CELL DISTRIBUTION WIDTH 16.6 % (11.6-14.6)
[2018-06-16 03:47] LABS: CHLORIDE 107 mEq/L (98-107)
[2018-06-16] MEDS ORDERED: ENOXAPARIN 120MG/0.8ML SYR SUBCUT ONE (04:15)
[2018-06-16] MEDS ORDERED: ASPIRIN 81MG TABLET PO ONE (04:15)
[2018-06-16] MEDS ORDERED: NITROGLYCERIN OINT 1GM/INCH UDPKT TD ONE (04:15)
[2018-06-16] MEDS ORDERED: LORAZEPAM 1MG TABLET PO ONE (04:15)
[2018-06-16] MEDS ORDERED: GUAIFENESIN 200MG/10ML SUGAR FREE UDC PO PRN (09:15)
[2018-06-16] MEDS ORDERED: ONDANSETRON HCL 4MG/2ML INJ IV PRN (09:15)
[2018-06-16] MEDS ORDERED: DOCUSATE SODIUM 100MG CAPSULE PO PRN (09:15)
[2018-06-16] MEDS ORDERED: CLONIDINE 0.1MG TABLET PO PRN (09:15)
[2018-06-16] MEDS ORDERED: MAGNESIUM/ALUMINUM HYDROXIDE/SIMETHICONE 30ML UDC PO PRN (09:15)
[2018-06-16] MEDS ORDERED: ACETAMINOPHEN 325MG TABLET PO PRN (09:15)
[2018-06-16 09:30] VITALS: BP 104/81
[2018-06-16] MEDS ORDERED: FUROSEMIDE 40MG/4ML VIAL IV SCH (09:30)
[2018-06-16 10:00] VITALS: BP 104/81
[2018-06-16] MEDS: ENOXAPARIN 40MG/0.4ML SYR SUBCUT SCH (11:00)
[2018-06-16 12:00] VITALS: BP 110/79
[2018-06-16] MEDS: CARVEDILOL 3.125 MG TABLET PO SCH ×2 (14:17→20:30)
[2018-06-16 16:00] VITALS: BP 112/66
[2018-06-16] MEDS: FUROSEMIDE 20MG/2ML VIAL IVP SCH (17:10)
[2018-06-16 20:00] VITALS: BP 83/59
[2018-06-16] MEDS: IPRATROPIUM/ALBUTEROL 0.5-3(2.5)MG/3ML NEB INH PRN (20:49)
[2018-06-17] VITALS: BP 122/84
[2018-06-17] MEDS: IPRATROPIUM/ALBUTEROL 0.5-3(2.5)MG/3ML NEB INH PRN ×2 (01:00→04:31)
[2018-06-17] MEDS: KETOROLAC 30MG/ML VIAL IV PRN ×4 (02:23→22:08)
[2018-06-17 04:00] VITALS: BP 86/64
[2018-06-17 06:15] LABS: BASOPHILS % 0.6 % (0.0-2.0); EOSINOPHILS % 1.4 % (0.0-5.0); LYMPHOCYTES % 28.3 % (20.0-50.0); MEAN CORPUSCULAR HEMOGLOBIN 28.8 pg (28.0-32.0); MEAN CORPUSCULAR VOLUME 88.7 fL (80.0-94.0); MEAN PLATELET VOLUME 7.6 fl (7.4-10.4); MONOCYTES % 10.1 % (2.0-8.0); NEUTROPHILS % 59.6 % (40.0-76.0); PLATELET 241 x1000/uL (130-400); RED BLOOD CELL COUNT 4.17 mill/uL (4.7-6.1); RED CELL DISTRIBUTION WIDTH 16.5 % (11.6-14.6)
[2018-06-17 06:30] LABS: CHLORIDE 107 mEq/L (98-107)
[2018-06-17 06:43] LABS: HDL CHOLESTEROL 45 mg/dL (40-59); LDL CHOLESTEROL 41 mg/dL (5-100); T4 FREE 1.02 ng/dL (0.76-1.46)
[2018-06-17 08:00] VITALS: BP 145/79
[2018-06-17] MEDS: FUROSEMIDE 20MG/2ML VIAL IVP SCH ×2 (08:35→17:40)
[2018-06-17] MEDS: CARVEDILOL 3.125 MG TABLET PO SCH ×2 (08:36→20:18)
[2018-06-17] MEDS: ASPIRIN 81MG EC TABLET PO SCH (08:36)
[2018-06-17] MEDS: ENOXAPARIN 40MG/0.4ML SYR SUBCUT SCH (08:36)
[2018-06-17 12:00] VITALS: BP_SYST 132; BP_SYST 90; BP_DIAS 68
[2018-06-17] MEDS ORDERED: DIGOXIN 500MCG/2ML AMP IV SCH ×2 (12:30→15:30)
[2018-06-17] MEDS: ALBUTEROL (0.083%) 2.5MG/3ML NEB HHN SCH ×2 (14:28→20:50)
[2018-06-17] MEDS: AMIODARONE HCL 200 MG TABLET PO SCH ×2 (14:43→20:18)
[2018-06-17] MEDS: BUPROPION HCL 150MG SR TABLET PO SCH ×2 (14:44→20:19)
[2018-06-17 16:00] VITALS: BP 117/93
[2018-06-17 20:00] VITALS: BP 111/73
[2018-06-17] MEDS: TRAZODONE HCL 50MG TABLET PO SCH (20:18)
[2018-06-17] MEDS: ENOXAPARIN 30MG/0.3ML SYR SUBCUT SCH (20:19)
[2018-06-18] VITALS: BP 104/72
[2018-06-18] MEDS: ALBUTEROL (0.083%) 2.5MG/3ML NEB HHN SCH ×4 (00:51→23:34)
[2018-06-18 05:59] LABS: BASOPHILS % 0.5 % (0.0-2.0); EOSINOPHILS % 1.7 % (0.0-5.0); HEMATOCRIT. 34.6 % (42.0-52.0); HEMOGLOBIN. 11.5 g/dL (14.0-18.0); LYMPHOCYTES % 35.3 % (20.0-50.0); MEAN CORPUSCULAR HEMOGLOBIN 29.1 pg (28.0-32.0); MEAN CORPUSCULAR VOLUME 87.9 fL (80.0-94.0); MEAN PLATELET VOLUME 7.6 fl (7.4-10.4); NEUTROPHILS % 52.5 % (40.0-76.0); PLATELET 239 x1000/uL (130-400); RED BLOOD CELL COUNT 3.94 mill/uL (4.7-6.1); RED CELL DISTRIBUTION WIDTH 16.2 % (11.6-14.6)
[2018-06-18 06:45] LABS: CHLORIDE 108 mEq/L (98-107)
[2018-06-18 08:00] VITALS: BP 93/67
[2018-06-18] MEDS: CARVEDILOL 3.125 MG TABLET PO SCH ×2 (08:24→21:00)
[2018-06-18] MEDS: ASPIRIN 81MG EC TABLET PO SCH (08:53)
[2018-06-18] MEDS: BUPROPION HCL 150MG SR TABLET PO SCH ×2 (08:53→21:00)
[2018-06-18] MEDS: AMIODARONE HCL 200 MG TABLET PO SCH ×2 (08:53→23:08)
[2018-06-18] MEDS: FUROSEMIDE 20MG/2ML VIAL IVP SCH ×2 (08:53→17:53)
[2018-06-18] MEDS: KETOROLAC 30MG/ML VIAL IV PRN ×2 (08:54→23:01)
[2018-06-18] MEDS: ENOXAPARIN 30MG/0.3ML SYR SUBCUT SCH ×2 (08:54→23:07)
[2018-06-18 12:00] VITALS: BP 112/83
[2018-06-18 16:00] VITALS: BP 117/81
[2018-06-18] MEDS: DIGOXIN 250MCG TABLET PO SCH (18:00)
[2018-06-18 20:00] VITALS: BP 146/86
[2018-06-18 21:54] LABS: BASOPHILS % 0.9 % (0.0-2.0); EOSINOPHILS % 1.3 % (0.0-5.0); HEMATOCRIT. 36.8 % (42.0-52.0); HEMOGLOBIN. 11.9 g/dL (14.0-18.0); LYMPHOCYTES % 31.6 % (20.0-50.0); MEAN CORPUSCULAR HEMOGLOBIN 28.8 pg (28.0-32.0); MEAN CORPUSCULAR VOLUME 89.3 fL (80.0-94.0); MEAN PLATELET VOLUME 7.2 fl (7.4-10.4); MONOCYTES % 8.9 % (2.0-8.0); NEUTROPHILS % 57.3 % (40.0-76.0); PLATELET 238 x1000/uL (130-400); RED BLOOD CELL COUNT 4.12 mill/uL (4.7-6.1); RED CELL DISTRIBUTION WIDTH 16.5 % (11.6-14.6)
[2018-06-18 22:00] LABS: INR 1.1; PARTIAL THROMBOPLASTIN TIME 27.1 sec (23.4-31.0); PROTHROMBIN TIME 11.4 sec (9.1-11.1)
[2018-06-18] MEDS: TAMSULOSIN HCL 0.4MG SR CAPSULE PO SCH (23:08)
[2018-06-18] MEDS: TRAZODONE HCL 50MG TABLET PO SCH (23:08)
[2018-06-19] VITALS: BP 142/80
[2018-06-19 04:00] VITALS: BP 118/86
[2018-06-19] MEDS: HYDROCODONE/ACETAMINOPHEN 10/325MG TABLET PO PRN ×3 (04:09→16:07)
[2018-06-19 08:00] VITALS: BP 101/53
[2018-06-19] MEDS: AMIODARONE HCL 200 MG TABLET PO SCH ×2 (08:49→22:55)
[2018-06-19] MEDS: FUROSEMIDE 20MG/2ML VIAL IVP SCH ×2 (08:49→16:08)
[2018-06-19] MEDS: ENOXAPARIN 30MG/0.3ML SYR SUBCUT SCH (08:49)
[2018-06-19] MEDS: CARVEDILOL 3.125 MG TABLET PO SCH ×2 (08:51→21:00)
[2018-06-19] MEDS: ASPIRIN 81MG EC TABLET PO SCH (08:51)
[2018-06-19 08:52] LABS: CHLORIDE 105 mEq/L (98-107)
[2018-06-19] MEDS: BUPROPION HCL 150MG SR TABLET PO SCH ×3 (09:00→22:55)
[2018-06-19] MEDS: ALBUTEROL (0.083%) 2.5MG/3ML NEB HHN SCH ×3 (09:51→21:34)
[2018-06-19 12:00] VITALS: BP 118/64
[2018-06-19] MEDS ORDERED: HALOPERIDOL LACTATE 5MG/ML VIAL IM PRN (12:30)
[2018-06-19] MEDS ORDERED: LORAZEPAM 2MG/ML CPJ IV PRN (12:30)
[2018-06-19] MEDS ORDERED: ENOXAPARIN 80MG/0.8ML SYR SUBCUT NR (12:40)
[2018-06-19] MEDS ORDERED: IOHEXOL-350 100 ML BOTTLE ONE (14:16)
[2018-06-19 16:00] VITALS: BP 102/77
[2018-06-19] MEDS: DIGOXIN 250MCG TABLET PO SCH (17:52)
[2018-06-19] MEDS ORDERED: FURO40TA5 PO (17:59)
[2018-06-19] MEDS ORDERED: COR3 PO (17:59)
[2018-06-19 20:00] VITALS: BP 155/71
[2018-06-19] MEDS ORDERED: ENOXAPARIN 120MG/0.8ML SYR SUBCUT SCH (21:00)
[2018-06-19] MEDS: TRAZODONE HCL 50MG TABLET PO SCH (22:55)
[2018-06-19] MEDS: TAMSULOSIN HCL 0.4MG SR CAPSULE PO SCH (22:55)
[2018-06-20] MEDS: HYDROCODONE/ACETAMINOPHEN 10/325MG TABLET PO PRN (00:08)
[2018-06-20] MEDS: ALBUTEROL (0.083%) 2.5MG/3ML NEB HHN SCH ×2 (03:15→08:13)
[2018-06-20 04:00] VITALS: BP 110/72
[2018-06-20] MEDS: BUPROPION HCL 150MG SR TABLET PO SCH (09:00)
[2018-06-20] MEDS: AMIODARONE HCL 200 MG TABLET PO SCH (09:00)
[2018-06-20] MEDS ORDERED: LOSARTAN POTASSIUM 25 MG TABLET PO SCH (09:00)
[2018-06-20] MEDS: CARVEDILOL 3.125 MG TABLET PO SCH (09:00)
[2018-06-20] MEDS ORDERED: FUROSEMIDE 40MG TABLET PO SCH (09:00)
[2018-06-20] MEDS ORDERED: RIVAROXABAN 20 MG TABLET PO SCH (17:00)
== END 2018-06-20 11:45 | disposition home or self-care (01) | DRG 45 ==
LOC: ER 02:56 → 7WST 04:11 → EDBEDREQ 04:15 → EDBEDREQTM 04:15 → ENRESERV 07:25 → ER 08:17
PROVIDERS: ADMIT Internal Medicine; ATTEND Internal Medicine
DX: I63.9 Cerebral infarction, unspecified (principal); I50.23 Acute on chronic systolic (congestive) heart failure; I27.20 Pulmonary hypertension, unspecified; E83.51 Hypocalcemia; F20.9 Schizophrenia, unspecified; I08.1 Rheumatic disorders of both mitral and tricuspid valves; I42.9 Cardiomyopathy, unspecified; I11.0 Hypertensive heart disease with heart failure; I48.2 Chronic atrial fibrillation; F14.90 Cocaine use, unspecified, uncomplicated; F12.90 Cannabis use, unspecified, uncomplicated; F15.90 Other stimulant use, unspecified, uncomplicated; E66.9 Obesity, unspecified; F17.210 Nicotine dependence, cigarettes, uncomplicated; D64.9 Anemia, unspecified; F31.9 Bipolar disorder, unspecified; J44.1 Chronic obstructive pulmonary disease with (acute) exacerbation; G47.00 Insomnia, unspecified; Z59.0 Homelessness; Z79.899 Other long term (current) drug therapy; Z91.19 Patient's noncompliance with other medical treatment and regimen; I25.2 Old myocardial infarction; Z68.34 Body mass index [BMI] 34.0-34.9, adult; Z71.3 Dietary counseling and surveillance
CPT/HCPCS: 36415; 70496; 70498; 70551; 71045; 80048; 80061; 82550; 82962; 83880; 84439; 84443; 84484; 93005; 93306; 93970; 94640; 96372; 97161; 97166; 99291; J1160; J1650; J1885; J1940; J7611; J7620; Q9967

== ENCOUNTER 2018-09-10 20:29 | Emergency (ER) | payer MEDICAID ==
[~2018-09-10] VITALS: Ht 188 cm; Wt 124.0 kg
[~2018-09-10 20:29] MED LIST: FURO40TA5 PO
[2018-09-10] MEDS ORDERED: OLANZAPINE 5MG TABLET ODT PO ONE (23:00)
[2018-09-10] MEDS ORDERED: ASPIRIN 81MG TABLET PO ONE (23:00)
[2018-09-10] MEDS ORDERED: BUPROPION HCL 100MG TABLET PO ONE (23:15)
[2018-09-10 23:37] LABS: BASOPHILS % 0.6 % (0.0-2.0); EOSINOPHILS % 0.5 % (0.0-5.0); HEMATOCRIT. 43.7 % (42.0-52.0); HEMOGLOBIN. 14.3 g/dL (14.0-18.0); LYMPHOCYTES % 26.2 % (20.0-50.0); MEAN CORPUSCULAR HEMOGLOBIN 29.8 pg (28.0-32.0); MEAN CORPUSCULAR VOLUME 91.1 fL (80.0-94.0); MONOCYTES % 5.6 % (2.0-8.0); NEUTROPHILS % 67.1 % (40.0-76.0); PLATELET 237 x1000/uL (130-400); RED CELL DISTRIBUTION WIDTH 15.8 % (11.6-14.6)
[2018-09-10 23:44] LABS: CHLORIDE 109 mEq/L (98-107)
[2018-09-10 23:48] LABS: ETHANOL BLOOD < 10 mg/dL
[2018-09-11] MEDS ORDERED: HALOPERIDOL LACTATE 5MG/ML VIAL IM ONE (02:15)
[2018-09-11] MEDS ORDERED: BUPROPION HCL 100MG TABLET PO ONE (03:00)
[2018-09-11 05:40] VITALS: BP 0/0
[2018-09-11] MEDS ORDERED: BUPROPION HCL 150MG SR TABLET PO ONE (09:15)
== END 2018-09-11 10:43 | disposition home or self-care (01) ==
LOC: ER 20:29 → CANBEDREQ 09-11 16:24
DX: F23 Brief psychotic disorder (principal); F31.89 Other bipolar disorder; I11.0 Hypertensive heart disease with heart failure; I50.9 Heart failure, unspecified; I48.2 Chronic atrial fibrillation; F14.10 Cocaine abuse, uncomplicated; F17.210 Nicotine dependence, cigarettes, uncomplicated; Z79.01 Long term (current) use of anticoagulants; Z78.1 Physical restraint status
CPT/HCPCS: 36415; 71045; 80053; 80320; 83880; 84484; 85025; 93005; 99284; A4217; J1630; Z7610; G0480

== ENCOUNTER 2018-09-11 10:44 | Emergency (ER) | payer MEDICAID | END 2018-09-11 12:13 | disposition left against medical advice (07) | LOC: ER 10:44 | DX: R68.89 Other general symptoms and signs (principal); Z53.21 Procedure and treatment not carried out due to patient leaving prior to being seen by health care provider ==

== ENCOUNTER 2018-09-18 19:26 | Emergency (ER) | payer MEDICAID ==
[~2018-09-18] VITALS: Ht 188 cm; Wt 102.0 kg
[2018-09-18] MEDS ORDERED: SODIUM CHLORIDE 0.9% 1,000 ML IV ONE (21:16)
[2018-09-18] MEDS ORDERED: HYDROCODONE/ACETAMINOPHEN 5/325MG TABLET PO STA (21:16)
[2018-09-18] MEDS ORDERED: ONDANSETRON HCL 4MG/2ML INJ IV STA (21:16)
[2018-09-18 22:21] LABS: CLARITY URINE CLEAR (CLEAR); COLOR URINE YELLOW (YELLOW); KETONES URINE NEGATIVE (NEGATIVE); LEUKOCYTE ESTERASE URINE NEGATIVE (NEGATIVE); NITRITE URINE NEGATIVE (NEGATIVE); OCCULT BLOOD URINE NEGATIVE (NEGATIVE); PH URINE 5.5 (4.5-8.0); PROTEIN URINE NEGATIVE (NEGATIVE); SPECIFIC GRAVITY URINE 1.007 (1.005-1.030); UROBILINOGEN URINE 0.2 E.U./dL (0.2-1.0)
[2018-09-18 22:30] LABS: *AMPHETAMINES SCREEN URINE NEGATIVE (NEGATIVE); *BARBITURATES SCREEN URINE NEGATIVE (NEGATIVE); *BENZODIAZEPINES SCREEN URINE NEGATIVE (NEGATIVE); *COCAINE SCREEN URINE PRESUMTIVE POSITIVE (NEGATIVE); METHADONE URINE SCREEN NEGATIVE (NEGATIVE); OPIATES URINE SCREEN NEGATIVE (NEGATIVE)
[2018-09-18 22:31] LABS: CANNABINOID URINE SCREEN PRESUMTIVE POSITIVE (NEGATIVE); PHENCYCLIDINE URINE SCREEN PRESUMTIVE POSITIVE (NEGATIVE)
[2018-09-18 22:40] LABS: BASOPHILS % 1.1 % (0.0-2.0); CHLORIDE 111 mEq/L (98-107); EOSINOPHILS % 1.2 % (0.0-5.0); HEMATOCRIT. 40.1 % (42.0-52.0); HEMOGLOBIN. 12.9 g/dL (14.0-18.0); LYMPHOCYTES % 34.6 % (20.0-50.0); MEAN CORPUSCULAR HEMOGLOBIN 29.5 pg (28.0-32.0); MEAN CORPUSCULAR VOLUME 91.5 fL (80.0-94.0); MEAN PLATELET VOLUME 7.6 fl (7.4-10.4); MONOCYTES % 8.3 % (2.0-8.0); NEUTROPHILS % 54.8 % (40.0-76.0); PLATELET 197 x1000/uL (130-400); RED BLOOD CELL COUNT 4.38 mill/uL (4.7-6.1); RED CELL DISTRIBUTION WIDTH 15.5 % (11.6-14.6)
[2018-09-18 22:43] LABS: PROTHROMBIN TIME 10.7 sec (9.6-11.0)
[2018-09-18 22:45] LABS: ETHANOL BLOOD < 10 mg/dL
[2018-09-19] MEDS ORDERED: FUROSEMIDE 40MG/4ML VIAL IVP ONE (03:00)
[2018-09-19 04:09] VITALS: BP 142/68
== END 2018-09-19 05:19 | disposition left against medical advice (07) ==
LOC: ER 19:44 → CANBEDREQ 09-19 08:58
DX: I11.0 Hypertensive heart disease with heart failure (principal); I50.9 Heart failure, unspecified; I48.91 Unspecified atrial fibrillation; F19.10 Other psychoactive substance abuse, uncomplicated; F12.10 Cannabis abuse, uncomplicated; G89.29 Other chronic pain; M54.9 Dorsalgia, unspecified; Z79.899 Other long term (current) drug therapy
CPT/HCPCS: 36415; 70450; 71045; 80053; 80305; 80320; 81003; 83690; 83880; 84484; 85025; 85610; 93005; 96361; 96374; 96375; 99284; J1940; J2405; J7030; Z7610; G0480

== ENCOUNTER 2018-10-04 07:47 | Emergency (ER) | payer MEDICAID ==
[~2018-10-04] VITALS: Ht 182.9 cm; Wt 95.0 kg
[2018-10-04] MEDS ORDERED: OLANZAPINE 10 MG/VIAL IM ONE (08:00)
[2018-10-04] MEDS ORDERED: LORAZEPAM 2MG/ML CPJ IM ONE (08:00)
[2018-10-04 08:24] LABS: BASOPHILS % 0.5 % (0.0-2.0); EOSINOPHILS % 0.4 % (0.0-5.0); HEMATOCRIT. 37.3 % (42.0-52.0); HEMOGLOBIN. 12.2 g/dL (14.0-18.0); LYMPHOCYTES % 16.1 % (20.0-50.0); MEAN CORPUSCULAR VOLUME 91.4 fL (80.0-94.0); MEAN PLATELET VOLUME 7.3 fl (7.4-10.4); MONOCYTES % 7.5 % (2.0-8.0); NEUTROPHILS % 75.5 % (40.0-76.0); PLATELET 208 x1000/uL (130-400); RED BLOOD CELL COUNT 4.08 mill/uL (4.7-6.1); RED CELL DISTRIBUTION WIDTH 15.6 % (11.6-14.6)
[2018-10-04 08:30] LABS: CHLORIDE 112 mEq/L (98-107)
[2018-10-04 08:33] LABS: ETHANOL BLOOD < 10 mg/dL
[2018-10-04 10:55] LABS: *BENZODIAZEPINES SCREEN URINE NEGATIVE (NEGATIVE)
[2018-10-04 10:56] LABS: *COCAINE SCREEN URINE PRESUMTIVE POSITIVE (NEGATIVE); CANNABINOID URINE SCREEN PRESUMTIVE POSITIVE (NEGATIVE); METHADONE URINE SCREEN NEGATIVE (NEGATIVE); OPIATES URINE SCREEN NEGATIVE (NEGATIVE); PHENCYCLIDINE URINE SCREEN PRESUMTIVE POSITIVE (NEGATIVE)
[2018-10-04 10:58] LABS: *BARBITURATES SCREEN URINE NEGATIVE (NEGATIVE)
[2018-10-04 11:02] LABS: *AMPHETAMINES SCREEN URINE PRESUMTIVE POSITIVE (NEGATIVE)
[2018-10-04 17:00] VITALS: BP 106/78
== END 2018-10-04 19:00 | disposition home or self-care (01) ==
LOC: ER 07:47
DX: G92 Toxic encephalopathy (principal); F16.129 Hallucinogen abuse with intoxication, unspecified; F14.229 Cocaine dependence with intoxication, unspecified; I11.9 Hypertensive heart disease without heart failure; Z79.899 Other long term (current) drug therapy
CPT/HCPCS: 36415; 80048; 80305; 80307; 80320; 80329; 85025; 96372; 99284; J2060; J3490; Z7610; G0480

== ENCOUNTER 2018-10-13 13:00 | Inpatient (IN) | payer MEDICAID ==
[~2018-10-13] VITALS: Ht 182.9 cm; Wt 89.8 kg
[2018-10-13] MEDS ORDERED: AZITHROMYCIN 500 MG in DEXT 5% WATER 250 ML IV SCH (16:00)
[2018-10-13] MEDS ORDERED: CEFTRIAXONE 1 G PREMIX 50 ML IV ONE (16:00)
[2018-10-13 16:16] LABS: BASOPHILS % 0.6 % (0.0-2.0); EOSINOPHILS % 0.7 % (0.0-5.0); HEMATOCRIT. 36.6 % (42.0-52.0); HEMOGLOBIN. 11.9 g/dL (14.0-18.0); MEAN CORPUSCULAR HEMOGLOBIN 29.7 pg (28.0-32.0); MEAN CORPUSCULAR VOLUME 91.3 fL (80.0-94.0); MEAN PLATELET VOLUME 7.4 fl (7.4-10.4); MONOCYTES % 7.6 % (2.0-8.0); NEUTROPHILS % 67.1 % (40.0-76.0); PLATELET 228 x1000/uL (130-400); RED BLOOD CELL COUNT 4.01 mill/uL (4.7-6.1); RED CELL DISTRIBUTION WIDTH 15.3 % (11.6-14.6)
[2018-10-13 16:21] LABS: CHLORIDE 111 mEq/L (98-107)
[2018-10-13 16:26] LABS: ETHANOL BLOOD < 10 mg/dL
[2018-10-13] MEDS ORDERED: LORAZEPAM 2MG/ML CPJ IV ONE (17:30)
[2018-10-13 18:01] LABS: METHADONE URINE SCREEN NEGATIVE (NEGATIVE); OPIATES URINE SCREEN NEGATIVE (NEGATIVE); PHENCYCLIDINE URINE SCREEN PRESUMTIVE POSITIVE (NEGATIVE)
[2018-10-13 18:02] LABS: *AMPHETAMINES SCREEN URINE NEGATIVE (NEGATIVE); *BARBITURATES SCREEN URINE NEGATIVE (NEGATIVE); *BENZODIAZEPINES SCREEN URINE NEGATIVE (NEGATIVE); *COCAINE SCREEN URINE PRESUMTIVE POSITIVE (NEGATIVE); CANNABINOID URINE SCREEN PRESUMTIVE POSITIVE (NEGATIVE)
[2018-10-13 22:00] VITALS: BP 111/75
[2018-10-13] MEDS ORDERED: ALBU05 IH (22:31)
[2018-10-13] MEDS ORDERED: IPRATROPIUM/ALBUTEROL 0.5-3(2.5)MG/3ML NEB HHN PRN (22:45)
[2018-10-13] MEDS ORDERED: LORAZEPAM 2MG/ML CPJ IV PRN (22:45)
[2018-10-14 00:31] VITALS: BP 111/75
[2018-10-14] MEDS ORDERED: ENOXAPARIN 40MG/0.4ML SYR SUBCUT SCH (09:00)
[2018-10-14 09:36] LABS: BASOPHILS % 0.5 % (0.0-2.0); EOSINOPHILS % 0.6 % (0.0-5.0); HEMATOCRIT. 39.2 % (42.0-52.0); HEMOGLOBIN. 12.8 g/dL (14.0-18.0); LYMPHOCYTES % 21.2 % (20.0-50.0); MEAN CORPUSCULAR HEMOGLOBIN 29.7 pg (28.0-32.0); MEAN PLATELET VOLUME 7.8 fl (7.4-10.4); MONOCYTES % 6.1 % (2.0-8.0); NEUTROPHILS % 71.6 % (40.0-76.0); PLATELET 260 x1000/uL (130-400); RED BLOOD CELL COUNT 4.31 mill/uL (4.7-6.1); RED CELL DISTRIBUTION WIDTH 15.6 % (11.6-14.6)
[2018-10-14 09:49] LABS: CHLORIDE 108 mEq/L (98-107)
[2018-10-14 10:41] VITALS: BP 110/87
[2018-10-14] MEDS: LOSARTAN POTASSIUM 25 MG TABLET PO SCH (10:48)
[2018-10-14] MEDS ORDERED: LORAZEPAM 2MG/ML CPJ IV PRN (11:15)
[2018-10-14] MEDS ORDERED: GUAIFENESIN-DM 200MG-20MG/10ML UDC PO PRN (12:15)
[2018-10-14] MEDS: QUETIAPINE FUMARATE 50MG TABLET PO SCH (13:15)
[2018-10-14 13:38] VITALS: BP 110/85
[2018-10-14] MEDS ORDERED: HALOPERIDOL LACTATE 5MG/ML VIAL IM PRN (15:00)
[2018-10-14 16:00] VITALS: BP 131/66
[2018-10-14] MEDS: IPRATROPIUM/ALBUTEROL 0.5-3(2.5)MG/3ML NEB HHN SCH (16:00)
[2018-10-14] MEDS ORDERED: CEFTRIAXONE 1 G PREMIX 50 ML IV SCH (17:00)
[2018-10-14] MEDS ORDERED: AZITHROMYCIN 500 MG in DEXT 5% WATER 250 ML IV SCH (18:00)
[2018-10-14] MEDS ORDERED: BUPROPION HCL 100MG TABLET PO SCH (18:00)
[2018-10-14] MEDS: FUROSEMIDE 40MG TABLET PO SCH (18:47)
[2018-10-14] MEDS: APIXABAN 5 MG TABLET PO SCH (18:47)
[2018-10-14] MEDS: BUPROPION HCL 100MG SR TABLET PO SCH (18:47)
[2018-10-14 20:00] VITALS: BP 115/78
[2018-10-14] MEDS ORDERED: TRAZODONE HCL 50MG TABLET PO SCH (21:00)
[2018-10-14] MEDS: ARIPIPRAZOLE 10MG TABLET PO SCH (21:57)
[2018-10-15] MEDS: IPRATROPIUM/ALBUTEROL 0.5-3(2.5)MG/3ML NEB HHN SCH ×3 (04:30→11:45)
[2018-10-15] MEDS: FUROSEMIDE 40MG TABLET PO SCH (06:11)
[2018-10-15] MEDS ORDERED: LORAZEPAM 1MG TABLET PO PRN (06:30)
[2018-10-15 08:00] VITALS: BP 95/64
[2018-10-15] MEDS: QUETIAPINE FUMARATE 50MG TABLET PO SCH (08:43)
[2018-10-15] MEDS: LOSARTAN POTASSIUM 25 MG TABLET PO SCH (08:43)
[2018-10-15] MEDS: APIXABAN 5 MG TABLET PO SCH (08:43)
[2018-10-15] MEDS: ARIPIPRAZOLE 10MG TABLET PO SCH (08:43)
[2018-10-15] MEDS: BUPROPION HCL 100MG SR TABLET PO SCH (08:43)
[2018-10-15] MEDS ORDERED: LEVOFLOXACIN 500MG TABLET PO SCH (11:00)
[2018-10-15 13:01] VITALS: BP 142/60
== END 2018-10-15 16:57 | disposition home or self-care (01) | DRG 139 ==
LOC: ER 13:00 → 7WST 18:02 → EDBEDREQTM 18:05 → EDBEDREQ 18:05 → ENRESERV 21:13 → 6EST 10-14 12:38
PROVIDERS: ADMIT Internal Medicine; ATTEND Internal Medicine
DX: J18.1 Lobar pneumonia, unspecified organism (principal); J96.01 Acute respiratory failure with hypoxia; I50.23 Acute on chronic systolic (congestive) heart failure; E44.0 Moderate protein-calorie malnutrition; E87.8 Other disorders of electrolyte and fluid balance, not elsewhere classified; F20.9 Schizophrenia, unspecified; I48.91 Unspecified atrial fibrillation; I42.9 Cardiomyopathy, unspecified; I08.1 Rheumatic disorders of both mitral and tricuspid valves; F31.9 Bipolar disorder, unspecified; I11.0 Hypertensive heart disease with heart failure; F12.10 Cannabis abuse, uncomplicated; F14.10 Cocaine abuse, uncomplicated; F17.210 Nicotine dependence, cigarettes, uncomplicated; R73.03 Prediabetes; Z68.26 Body mass index [BMI] 26.0-26.9, adult; Z86.73 Personal history of transient ischemic attack (TIA), and cerebral infarction without residual deficits; Z91.19 Patient's noncompliance with other medical treatment and regimen
CPT/HCPCS: 36415; 71045; 80048; 80305; 80320; 83880; 84484; 93005; 94640; 99285; C1893; J0456; J0696; J1650; J2060; J7060; J7620; G0480

== ENCOUNTER 2018-10-23 22:56 | Inpatient (IN) | payer MEDICAID ==
[~2018-10-23] VITALS: Ht 185.4 cm; Wt 89.8 kg
[~2018-10-23 22:56] MED LIST changes: +ALBU05 IH
[2018-10-23] MEDS ORDERED: VISCOUS LIDOCAINE 2% 15 ML UDC PO ONE (23:30)
[2018-10-23] MEDS ORDERED: NITROGLYCERIN 0.4MG TABLET SL SL ONE (23:30)
[2018-10-23] MEDS ORDERED: MAGNESIUM/ALUMINUM HYDROXIDE/SIMETHICONE 30ML UDC PO ONE (23:30)
[2018-10-24 00:15] LABS: BASOPHILS % 0.4 % (0.0-2.0); EOSINOPHILS % 0.6 % (0.0-5.0); HEMATOCRIT. 40.6 % (42.0-52.0); HEMOGLOBIN. 13.2 g/dL (14.0-18.0); LYMPHOCYTES % 10.4 % (20.0-50.0); MEAN CORPUSCULAR HEMOGLOBIN 29.9 pg (28.0-32.0); MEAN CORPUSCULAR VOLUME 91.8 fL (80.0-94.0); MEAN PLATELET VOLUME 7.5 fl (7.4-10.4); MONOCYTES % 6.9 % (2.0-8.0); NEUTROPHILS % 81.7 % (40.0-76.0); PLATELET 238 x1000/uL (130-400); RED BLOOD CELL COUNT 4.42 mill/uL (4.7-6.1); RED CELL DISTRIBUTION WIDTH 15.3 % (11.6-14.6)
[2018-10-24 00:22] LABS: CHLORIDE 111 mEq/L (98-107)
[2018-10-24] MEDS ORDERED: DILTIAZEM HCL 120MG CAPSULE CD 24HR PO ONE (00:30)
[2018-10-24] MEDS ORDERED: DILTIAZEM HCL 5MG/ML 5ML VIAL IV ONE (00:30)
[2018-10-24] MEDS ORDERED: SODIUM CHLORIDE 0.9% 1,000 ML IV ONE (00:30)
[2018-10-24 04:00] VITALS: BP 93/65
[2018-10-24 04:15] VITALS: BP 93/65
[2018-10-24] MEDS ORDERED: MORPHINE SULFATE 2 MG/ML CPJ (NOT FOR IM USE) IV PRN (04:45)
[2018-10-24] MEDS ORDERED: ONDANSETRON HCL 4MG TABLET PO PRN (04:45)
[2018-10-24] MEDS ORDERED: ACETAMINOPHEN 325MG TABLET PO PRN (04:45)
[2018-10-24] MEDS ORDERED: ARIP15TA2 MT (05:53)
[2018-10-24] MEDS ORDERED: BUPR100T13 PO (05:53)
[2018-10-24] MEDS ORDERED: TRAZ-213 MT (05:53)
[2018-10-24] MEDS: NITROGLYCERIN OINT 1GM/INCH UDPKT TD SCH ×2 (06:00→13:08)
[2018-10-24] MEDS ORDERED: ENOXAPARIN 100MG/ML SYR SUBCUT SCH (06:00)
[2018-10-24] MEDS ORDERED: LORAZEPAM 2MG/ML CPJ IV PRN (08:00)
[2018-10-24] MEDS ORDERED: HALOPERIDOL LACTATE 5MG/ML VIAL IM PRN (08:00)
[2018-10-24 08:30] VITALS: BP 110/79
[2018-10-24] MEDS: APIXABAN 5 MG TABLET PO SCH ×2 (08:48→14:10)
[2018-10-24] MEDS ORDERED: CARVEDILOL 3.125 MG TABLET PO SCH (09:00)
[2018-10-24] MEDS ORDERED: ASPIRIN 325MG TABLET PO SCH (09:00)
[2018-10-24] MEDS ORDERED: METOPROLOL TARTRATE 50MG TABLET PO SCH (09:00)
[2018-10-24 09:48] LABS: INR 1.1; PROTHROMBIN TIME 11.2 sec (9.6-11.0)
[2018-10-24 11:43] VITALS: BP 97/70
[2018-10-24] MEDS: ARIPIPRAZOLE 10MG TABLET PO NR ×2 (13:56→14:10)
[2018-10-24] MEDS ORDERED: BUPROPION HCL 150MG TABLET XL 24HR PO NR (14:00)
[2018-10-24 14:37] VITALS: BP 97/70
== END 2018-10-24 15:36 | disposition home or self-care (01) | DRG 201 ==
LOC: ER 22:56 → EDUNIT# 22:56 → 8WST 10-24 00:36 → EDBEDREQ 10-24 00:44 → EDBEDREQTM 10-24 00:44 → ENRESERV 10-24 02:25
PROVIDERS: ADMIT Internal Medicine; ATTEND Internal Medicine
DX: I48.91 Unspecified atrial fibrillation (principal); E87.8 Other disorders of electrolyte and fluid balance, not elsewhere classified; I42.9 Cardiomyopathy, unspecified; I11.0 Hypertensive heart disease with heart failure; I50.22 Chronic systolic (congestive) heart failure; E11.9 Type 2 diabetes mellitus without complications; F20.9 Schizophrenia, unspecified; F12.10 Cannabis abuse, uncomplicated; F14.10 Cocaine abuse, uncomplicated; F17.210 Nicotine dependence, cigarettes, uncomplicated; Z86.73 Personal history of transient ischemic attack (TIA), and cerebral infarction without residual deficits; Z91.19 Patient's noncompliance with other medical treatment and regimen
CPT/HCPCS: 36415; 71045; 82962; 83880; 84484; 96361; 96374; 99285; J1650; J2060; J7030

== ENCOUNTER 2018-12-12 07:52 | Inpatient (IN) | payer MEDICAID ==
[~2018-12-12] VITALS: Ht 182.9 cm; Wt 104.4 kg
[~2018-12-12 07:52] MED LIST changes: +ARIP15TA2 MT; +BUPR100T13 PO; +TRAZ-213 MT
[2018-12-12] MEDS ORDERED: ASPI-1393 PO (07:55)
[2018-12-12] MEDS ORDERED: BUPR100T13 PO (07:55)
[2018-12-12 10:09] LABS: BASOPHILS % 0.6 % (0.0-2.0); EOSINOPHILS % 0.5 % (0.0-5.0); HEMATOCRIT. 38.8 % (42.0-52.0); HEMOGLOBIN. 12.6 g/dL (14.0-18.0); LYMPHOCYTES % 24.3 % (20.0-50.0); MEAN CORPUSCULAR HEMOGLOBIN 29.7 pg (28.0-32.0); MEAN CORPUSCULAR VOLUME 91.4 fL (80.0-94.0); MEAN PLATELET VOLUME 7.5 fl (7.4-10.4); MONOCYTES % 5.7 % (2.0-8.0); NEUTROPHILS % 68.9 % (40.0-76.0); PLATELET 213 x1000/uL (130-400); RED BLOOD CELL COUNT 4.25 mill/uL (4.7-6.1); RED CELL DISTRIBUTION WIDTH 15.6 % (11.6-14.6)
[2018-12-12 10:14] LABS: CHLORIDE 115 mEq/L (98-107)
[2018-12-12] MEDS ORDERED: IPRATROPIUM/ALBUTEROL 0.5-3(2.5)MG/3ML NEB HHN ONE (10:15)
[2018-12-12] MEDS ORDERED: ASPIRIN 325MG EC TABLET PO ONE (13:15)
[2018-12-12] MEDS ORDERED: HYDROCODONE/ACETAMINOPHEN 5/325MG TABLET PO PRN (14:30)
[2018-12-12] MEDS ORDERED: CLONIDINE 0.1MG TABLET PO PRN (14:30)
[2018-12-12] MEDS ORDERED: ACETAMINOPHEN 325MG TABLET PO PRN (14:30)
[2018-12-12] MEDS ORDERED: MAGNESIUM/ALUMINUM HYDROXIDE/SIMETHICONE 30ML UDC PO PRN (14:30)
[2018-12-12] MEDS ORDERED: ONDANSETRON HCL 4MG/2ML INJ IV PRN (14:30)
[2018-12-12 16:30] VITALS: BP 114/87
[2018-12-12] MEDS: FUROSEMIDE 40MG/4ML VIAL IV SCH (17:54)
[2018-12-12] MEDS: AMLODIPINE 2.5MG TABLET PO SCH (19:14)
[2018-12-12 19:45] LABS: CLARITY URINE CLEAR (CLEAR); COLOR URINE YELLOW (YELLOW); KETONES URINE NEGATIVE (NEGATIVE); LEUKOCYTE ESTERASE URINE NEGATIVE (NEGATIVE); NITRITE URINE NEGATIVE (NEGATIVE); OCCULT BLOOD URINE NEGATIVE (NEGATIVE); PH URINE 6.5 (4.5-8.0); PROTEIN URINE NEGATIVE (NEGATIVE); SPECIFIC GRAVITY URINE 1.005 (1.005-1.030); UROBILINOGEN URINE 0.2 E.U./dL (0.2-1.0)
[2018-12-12 19:54] LABS: *AMPHETAMINES SCREEN URINE NEGATIVE (NEGATIVE); *BARBITURATES SCREEN URINE NEGATIVE (NEGATIVE); *BENZODIAZEPINES SCREEN URINE NEGATIVE (NEGATIVE); *COCAINE SCREEN URINE PRESUMTIVE POSITIVE (NEGATIVE); METHADONE URINE SCREEN NEGATIVE (NEGATIVE); OPIATES URINE SCREEN NEGATIVE (NEGATIVE)
[2018-12-12 19:55] LABS: CANNABINOID URINE SCREEN PRESUMTIVE POSITIVE (NEGATIVE); PHENCYCLIDINE URINE SCREEN NEGATIVE (NEGATIVE)
[2018-12-12] MEDS: IPRATROPIUM/ALBUTEROL 0.5-3(2.5)MG/3ML NEB INH PRN ×2 (20:07→23:57)
[2018-12-13 00:37] VITALS: BP 128/98
[2018-12-13 04:00] VITALS: BP 118/99
[2018-12-13] MEDS: IPRATROPIUM/ALBUTEROL 0.5-3(2.5)MG/3ML NEB INH PRN ×3 (05:15→11:23)
[2018-12-13] MEDS: FUROSEMIDE 40MG/4ML VIAL IV SCH ×2 (06:23→18:18)
[2018-12-13] MEDS: AMLODIPINE 2.5MG TABLET PO SCH (09:00)
[2018-12-13 10:56] LABS: BASOPHILS % 0.3 % (0.0-2.0); EOSINOPHILS % 0.3 % (0.0-5.0); HEMOGLOBIN. 13.2 g/dL (14.0-18.0); LYMPHOCYTES % 19.6 % (20.0-50.0); MEAN CORPUSCULAR HEMOGLOBIN 29.8 pg (28.0-32.0); MEAN CORPUSCULAR VOLUME 90.4 fL (80.0-94.0); MEAN PLATELET VOLUME 7.9 fl (7.4-10.4); MONOCYTES % 5.8 % (2.0-8.0); PLATELET 231 x1000/uL (130-400); RED BLOOD CELL COUNT 4.42 mill/uL (4.7-6.1)
[2018-12-13 11:31] LABS: CHLORIDE 106 mEq/L (98-107)
[2018-12-13 11:44] LABS: LDL CHOLESTEROL 42 mg/dL (5-100)
[2018-12-13 11:45] LABS: CREATINE KINASE 93 IU/L (39-308); HDL CHOLESTEROL 56 mg/dL (40-59)
[2018-12-13 11:48] LABS: CREATINE KINASE MB FRACTION 2.5 ng/mL (0.5-3.6)
[2018-12-13] MEDS: IPRATROPIUM/ALBUTEROL 0.5-3(2.5)MG/3ML NEB INH SCH ×2 (15:27→20:41)
[2018-12-13 16:00] VITALS: BP_SYST 103; BP_SYST 180; BP_DIAS 64; BP_DIAS 87
[2018-12-13] MEDS ORDERED: RIVAROXABAN 20 MG TABLET PO SCH (17:00)
[2018-12-13] MEDS: DILTIAZEM HCL 60MG TABLET PO SCH (18:18)
[2018-12-13 20:51] VITALS: BP 93/57
[2018-12-13] MEDS ORDERED: TRAZODONE HCL 50MG TABLET PO SCH (21:00)
[2018-12-14] MEDS: DILTIAZEM HCL 60MG TABLET PO SCH ×2 (00:26→06:00)
[2018-12-14] MEDS: IPRATROPIUM/ALBUTEROL 0.5-3(2.5)MG/3ML NEB INH SCH ×3 (00:43→08:35)
[2018-12-14 04:00] VITALS: BP 103/70
[2018-12-14 06:36] LABS: BASOPHILS % 0.3 % (0.0-2.0); EOSINOPHILS % 0.4 % (0.0-5.0); HEMATOCRIT. 39.7 % (42.0-52.0); HEMOGLOBIN. 13.1 g/dL (14.0-18.0); LYMPHOCYTES % 31.5 % (20.0-50.0); MEAN CORPUSCULAR HEMOGLOBIN 29.7 pg (28.0-32.0); MEAN PLATELET VOLUME 7.8 fl (7.4-10.4); NEUTROPHILS % 60.8 % (40.0-76.0); PLATELET 260 x1000/uL (130-400); RED BLOOD CELL COUNT 4.41 mill/uL (4.7-6.1); RED CELL DISTRIBUTION WIDTH 15.4 % (11.6-14.6)
[2018-12-14 07:05] LABS: CHLORIDE 106 mEq/L (98-107)
[2018-12-14] MEDS ORDERED: ARIPIPRAZOLE 5MG TABLET PO SCH (09:00)
[2018-12-14] MEDS ORDERED: ARIPIPRAZOLE 10MG TABLET PO SCH (09:00)
[2018-12-14] MEDS ORDERED: BUPROPION HCL 100MG SR TABLET PO SCH (09:00)
[2018-12-14] MEDS: FUROSEMIDE 40MG/4ML VIAL IV SCH (09:09)
[2018-12-14] MEDS ORDERED: DILT240C91 MT (09:16)
== END 2018-12-14 09:38 | disposition left against medical advice (07) | DRG 201 ==
LOC: ER 07:52 → 8WST 12:45 → CANRESERV 13:04 → ENRESERV 13:04
PROVIDERS: ADMIT Internal Medicine; ATTEND Internal Medicine
DX: I48.1 Persistent atrial fibrillation (principal); I50.23 Acute on chronic systolic (congestive) heart failure; I27.20 Pulmonary hypertension, unspecified; I42.0 Dilated cardiomyopathy; I11.0 Hypertensive heart disease with heart failure; F31.9 Bipolar disorder, unspecified; Z53.21 Procedure and treatment not carried out due to patient leaving prior to being seen by health care provider; I08.0 Rheumatic disorders of both mitral and aortic valves; F12.10 Cannabis abuse, uncomplicated; F14.10 Cocaine abuse, uncomplicated; Z79.01 Long term (current) use of anticoagulants; Z88.8 Allergy status to other drugs, medicaments and biological substances; Z79.82 Long term (current) use of aspirin; Z91.19 Patient's noncompliance with other medical treatment and regimen
CPT/HCPCS: 36415; 71045; 80048; 80061; 80305; 81003; 82550; 82553; 83735; 83880; 84443; 84484; 85379; 93005; 93970; 94640; 96374; 99285; J1940; J7620

== ENCOUNTER 2019-02-04 04:47 | Inpatient (IN) | payer MEDICAID, OTHER ==
[~2019-02-04] VITALS: Ht 182.9 cm; Wt 107.5 kg
[~2019-02-04 04:47] MED LIST changes: +ASPI-1393 PO; +DILT240C91 MT
[2019-02-04] MEDS ORDERED: ASPIRIN 81MG TABLET PO ONE (07:15)
[2019-02-04 08:46] LABS: BASOPHILS % 0.5 % (0.0-2.0); HEMATOCRIT. 40.4 % (42.0-52.0); HEMOGLOBIN. 13.2 g/dL (14.0-18.0); LYMPHOCYTES % 22.6 % (20.0-50.0); MEAN CORPUSCULAR HEMOGLOBIN 29.4 pg (28.0-32.0); MEAN CORPUSCULAR VOLUME 89.8 fL (80.0-94.0); MEAN PLATELET VOLUME 8.3 fl (7.4-10.4); MONOCYTES % 7.7 % (2.0-8.0); NEUTROPHILS % 68.2 % (40.0-76.0); PLATELET 183 x1000/uL (130-400); RED BLOOD CELL COUNT 4.49 mill/uL (4.7-6.1); RED CELL DISTRIBUTION WIDTH 15.3 % (11.6-14.6)
[2019-02-04 08:51] LABS: CHLORIDE 110 mEq/L (98-107)
[2019-02-04] MEDS ORDERED: FUROSEMIDE 20MG/2ML VIAL IVP ONE (10:45)
[2019-02-04] MEDS ORDERED: LEVOFLOXACIN 750MG PREMIX 150 ML IV ONE (10:45)
[2019-02-04] MEDS ORDERED: IOHEXOL-350 100 ML BOTTLE ONE (11:22)
[2019-02-04 11:45] VITALS: BP 110/78
[2019-02-04] MEDS ORDERED: ONDANSETRON HCL 4MG/2ML INJ IV PRN (12:15)
[2019-02-04] MEDS ORDERED: ACETAMINOPHEN 325MG TABLET PO PRN (12:15)
[2019-02-04] MEDS ORDERED: HALOPERIDOL LACTATE 5MG/ML VIAL IM PRN (12:30)
[2019-02-04] MEDS: FUROSEMIDE 40MG/4ML VIAL IVP SCH ×2 (13:39→18:16)
[2019-02-04] MEDS ORDERED: APIX5TAB MT (13:59)
[2019-02-04] MEDS: IPRATROPIUM/ALBUTEROL 0.5-3(2.5)MG/3ML NEB HHN PRN (14:18)
[2019-02-04 17:49] LABS: CLARITY URINE CLEAR (CLEAR); COLOR URINE YELLOW (YELLOW); KETONES URINE NEGATIVE (NEGATIVE); LEUKOCYTE ESTERASE URINE NEGATIVE (NEGATIVE); NITRITE URINE NEGATIVE (NEGATIVE); OCCULT BLOOD URINE NEGATIVE (NEGATIVE); PH URINE 5.5 (4.5-8.0); PROTEIN URINE NEGATIVE (NEGATIVE); SPECIFIC GRAVITY URINE 1.012 (1.005-1.030)
[2019-02-04] MEDS: RIVAROXABAN 20 MG TABLET PO SCH (18:16)
[2019-02-04 18:17] LABS: *AMPHETAMINES SCREEN URINE NEGATIVE (NEGATIVE); *BARBITURATES SCREEN URINE NEGATIVE (NEGATIVE); *BENZODIAZEPINES SCREEN URINE NEGATIVE (NEGATIVE); *COCAINE SCREEN URINE PRESUMTIVE POSITIVE (NEGATIVE)
[2019-02-04 18:18] LABS: METHADONE URINE SCREEN NEGATIVE (NEGATIVE); OPIATES URINE SCREEN NEGATIVE (NEGATIVE); PHENCYCLIDINE URINE SCREEN NEGATIVE (NEGATIVE)
[2019-02-04 18:19] LABS: CANNABINOID URINE SCREEN NEGATIVE (NEGATIVE)
[2019-02-04 20:00] VITALS: BP 109/59
[2019-02-04] MEDS: QUETIAPINE FUMARATE 50MG TABLET PO SCH ×2 (21:00→22:06)
[2019-02-05] VITALS: BP 108/80
[2019-02-05] MEDS: LORAZEPAM 2MG/ML CPJ IV PRN ×2 (01:38→20:51)
[2019-02-05 06:32] LABS: CHLORIDE 106 mEq/L (98-107)
[2019-02-05] MEDS: FUROSEMIDE 40MG/4ML VIAL IVP SCH ×2 (06:38→18:01)
[2019-02-05 06:40] LABS: BASOPHILS % 0.3 % (0.0-2.0); EOSINOPHILS % 0.9 % (0.0-5.0); HEMATOCRIT. 39.4 % (42.0-52.0); HEMOGLOBIN. 13.2 g/dL (14.0-18.0); LYMPHOCYTES % 27.3 % (20.0-50.0); MEAN CORPUSCULAR HEMOGLOBIN 29.6 pg (28.0-32.0); MEAN CORPUSCULAR VOLUME 88.3 fL (80.0-94.0); MEAN PLATELET VOLUME 8.3 fl (7.4-10.4); NEUTROPHILS % 61.5 % (40.0-76.0); PLATELET 212 x1000/uL (130-400); RED BLOOD CELL COUNT 4.46 mill/uL (4.7-6.1); RED CELL DISTRIBUTION WIDTH 15.1 % (11.6-14.6)
[2019-02-05 08:00] VITALS: BP 89/65
[2019-02-05] MEDS: LOSARTAN POTASSIUM 25 MG TABLET PO SCH (09:00)
[2019-02-05] MEDS: QUETIAPINE FUMARATE 50MG TABLET PO SCH ×2 (09:00→20:51)
[2019-02-05] MEDS ORDERED: LEVOFLOXACIN 750MG PREMIX 150 ML IV SCH (11:00)
[2019-02-05 12:00] VITALS: BP 91/61
[2019-02-05 16:00] VITALS: BP 96/62
[2019-02-05] MEDS ORDERED: BUPR-43 MT (16:30)
[2019-02-05] MEDS ORDERED: ARIP400S IM (16:30)
[2019-02-05] MEDS ORDERED: ALBU18HF2 IH (16:30)
[2019-02-05] MEDS ORDERED: CEFEPIME 500 MG in DEXTROSE 5% WATER 50 ML IV SCH (18:00)
[2019-02-05] MEDS: RIVAROXABAN 20 MG TABLET PO SCH (18:01)
[2019-02-05] MEDS: METRONIDAZOLE 500 MG PREMIX 100 ML IV SCH (18:43)
[2019-02-05 20:00] VITALS: BP 91/67
[2019-02-05] MEDS: GUAIFENESIN 600MG ER TABLET PO SCH (20:51)
[2019-02-05] MEDS: CEFEPIME 500 MG in DEXTROSE 5% WATER 50 ML IV SCH (20:52)
[2019-02-06] MEDS: METRONIDAZOLE 500 MG PREMIX 100 ML IV SCH ×3 (00:36→16:52)
[2019-02-06 08:00] VITALS: BP 125/89
[2019-02-06] MEDS: CEFEPIME 500 MG in DEXTROSE 5% WATER 50 ML IV SCH ×2 (08:14→21:52)
[2019-02-06] MEDS: QUETIAPINE FUMARATE 50MG TABLET PO SCH ×2 (08:14→21:53)
[2019-02-06] MEDS: GUAIFENESIN 600MG ER TABLET PO SCH ×2 (08:14→21:53)
[2019-02-06] MEDS: LOSARTAN POTASSIUM 25 MG TABLET PO SCH (08:14)
[2019-02-06] MEDS: ACETYLCYSTEINE 100MG/ML 10% VIAL 4ML INH SCH ×2 (08:54→15:55)
[2019-02-06] MEDS: IPRATROPIUM/ALBUTEROL 0.5-3(2.5)MG/3ML NEB HHN PRN (08:54)
[2019-02-06 09:06] LABS: CHLORIDE 105 mEq/L (98-107)
[2019-02-06] MEDS: MORPHINE SULFATE 2 MG/ML CPJ (NOT FOR IM USE) IV PRN ×2 (10:24→18:57)
[2019-02-06 16:00] VITALS: BP 117/98
[2019-02-06] MEDS: RIVAROXABAN 20 MG TABLET PO SCH (16:51)
[2019-02-06] MEDS ORDERED: CARV12.545 MT (18:01)
[2019-02-06] MEDS ORDERED: FLUT1DIS3 INH (18:01)
[2019-02-06] MEDS ORDERED: GUAI600T26 MT (18:01)
[2019-02-06] MEDS ORDERED: LOSA25TA26 MT (18:01)
[2019-02-06] MEDS ORDERED: LEVO750T21 MT (18:01)
[2019-02-06] MEDS ORDERED: APIX5TAB MT (18:01)
[2019-02-06] MEDS ORDERED: FURO-151 MT (18:01)
[2019-02-06] MEDS ORDERED: ALBU18HF2 IH (18:01)
[2019-02-06] MEDS ORDERED: IPRA3AMP9 HHN (18:01)
[2019-02-06 20:00] VITALS: BP 87/46
[2019-02-07] VITALS: BP 116/68
[2019-02-07] MEDS: ACETYLCYSTEINE 100MG/ML 10% VIAL 4ML INH SCH (00:55)
[2019-02-07] MEDS: IPRATROPIUM/ALBUTEROL 0.5-3(2.5)MG/3ML NEB HHN PRN (00:56)
[2019-02-07] MEDS: METRONIDAZOLE 500 MG PREMIX 100 ML IV SCH ×2 (01:06→08:29)
[2019-02-07] MEDS: MORPHINE SULFATE 2 MG/ML CPJ (NOT FOR IM USE) IV PRN (01:19)
[2019-02-07] MEDS: LORAZEPAM 2MG/ML CPJ IV PRN (03:33)
[2019-02-07 04:00] VITALS: BP 101/69
[2019-02-07 08:00] VITALS: BP 107/75
[2019-02-07] MEDS: CEFEPIME 500 MG in DEXTROSE 5% WATER 50 ML IV SCH (08:00)
[2019-02-07 08:06] VITALS: BP 107/75
[2019-02-07] MEDS: GUAIFENESIN 600MG ER TABLET PO SCH (08:29)
[2019-02-07] MEDS: LOSARTAN POTASSIUM 25 MG TABLET PO SCH (08:29)
[2019-02-07] MEDS: QUETIAPINE FUMARATE 50MG TABLET PO SCH (08:30)
== END 2019-02-07 08:53 | disposition home or self-care (01) | DRG 816 ==
LOC: ER 04:47 → 6WST 10:44 → EDBEDREQ 10:50 → EDBEDREQTM 10:57 → ENRESERV 11:00
PROVIDERS: ADMIT Internal Medicine; ATTEND Internal Medicine
DX: T40.5X1A Poisoning by cocaine, accidental (unintentional), initial encounter (principal); J96.00 Acute respiratory failure, unspecified whether with hypoxia or hypercapnia; A41.9 Sepsis, unspecified organism; I50.43 Acute on chronic combined systolic (congestive) and diastolic (congestive) heart failure; I27.20 Pulmonary hypertension, unspecified; I11.0 Hypertensive heart disease with heart failure; I42.9 Cardiomyopathy, unspecified; F17.210 Nicotine dependence, cigarettes, uncomplicated; F12.90 Cannabis use, unspecified, uncomplicated; I48.91 Unspecified atrial fibrillation; I25.10 Atherosclerotic heart disease of native coronary artery without angina pectoris; F14.10 Cocaine abuse, uncomplicated; F31.9 Bipolar disorder, unspecified; I25.2 Old myocardial infarction; Z79.899 Other long term (current) drug therapy; Z79.01 Long term (current) use of anticoagulants; J68.0 Bronchitis and pneumonitis due to chemicals, gases, fumes and vapors
CPT/HCPCS: 36415; 71045; 71275; 80048; 80305; 81003; 83880; 84484; 85379; 93005; 94640; 99285; J0692; J1940; J1956; J2060; J2270; J3490; J7040; J7060; J7608; J7620; Q9967

== ENCOUNTER 2019-03-16 03:14 | Emergency (ER) | payer MEDICAID ==
[~2019-03-16] VITALS: Ht 188 cm; Wt 91.0 kg
[~2019-03-16 03:14] MED LIST changes: +ALBU18HF2 IH; +APIX5TAB MT; +ARIP400S IM; +BUPR-43 MT; +CARV12.545 MT; +FLUT1DIS3 INH; +FURO-151 MT; +GUAI600T26 MT; +IPRA3AMP9 HHN; +LEVO750T21 MT; +LOSA25TA26 MT
[2019-03-16] MEDS ORDERED: ASPIRIN 81MG TABLET PO ONE (03:45)
[2019-03-16] MEDS ORDERED: FUROSEMIDE 40MG/4ML VIAL IV ONE (03:45)
[2019-03-16 04:00] LABS: BASOPHILS % 0.9 % (0.0-2.0); EOSINOPHILS % 1.1 % (0.0-5.0); HEMATOCRIT. 41.2 % (42.0-52.0); HEMOGLOBIN. 13.3 g/dL (14.0-18.0); LYMPHOCYTES % 24.7 % (20.0-50.0); MEAN CORPUSCULAR HEMOGLOBIN 29.4 pg (28.0-32.0); MEAN CORPUSCULAR VOLUME 90.7 fL (80.0-94.0); MEAN PLATELET VOLUME 8.1 fl (7.4-10.4); MONOCYTES % 6.5 % (2.0-8.0); NEUTROPHILS % 66.8 % (40.0-76.0); PLATELET 188 x1000/uL (130-400); RED BLOOD CELL COUNT 4.54 mill/uL (4.7-6.1); RED CELL DISTRIBUTION WIDTH 15.2 % (11.6-14.6)
[2019-03-16 04:07] LABS: CHLORIDE 111 mEq/L (98-107)
[2019-03-16 04:12] LABS: ETHANOL BLOOD < 10 mg/dL
[2019-03-16 06:30] VITALS: BP 137/71
[2019-03-16 09:08] LABS: *AMPHETAMINES SCREEN URINE NEGATIVE (NEGATIVE); *BARBITURATES SCREEN URINE NEGATIVE (NEGATIVE); *BENZODIAZEPINES SCREEN URINE NEGATIVE (NEGATIVE); *COCAINE SCREEN URINE PRESUMTIVE POSITIVE (NEGATIVE); OPIATES URINE SCREEN NEGATIVE (NEGATIVE); PHENCYCLIDINE URINE SCREEN NEGATIVE (NEGATIVE)
[2019-03-16 09:09] LABS: CANNABINOID URINE SCREEN PRESUMTIVE POSITIVE (NEGATIVE); METHADONE URINE SCREEN NEGATIVE (NEGATIVE)
== END 2019-03-16 06:45 | disposition home or self-care (01) ==
LOC: ER 03:14
DX: I50.9 Heart failure, unspecified (principal); J45.909 Unspecified asthma, uncomplicated; F31.9 Bipolar disorder, unspecified; F17.200 Nicotine dependence, unspecified, uncomplicated; Z88.8 Allergy status to other drugs, medicaments and biological substances; Z79.82 Long term (current) use of aspirin
CPT/HCPCS: 36415; 71045; 80053; 80305; 80320; 83880; 84484; 85025; 93005; 96374; 99284; J1940; Z7610; G0480

== ENCOUNTER 2021-06-08 13:30 | Inpatient (IN) | payer MEDICAID ==
[~2021-06-08] VITALS: Ht 180.3 cm; Wt 106.1 kg
[~2021-06-08 13:30] MED LIST changes: -ASPI-1393 PO; +ASPI-1497 PO; -BUPR-43 MT; +BUPR-46 MT; -TRAZ-213 MT; +TRAZ-252 MT
[2021-06-08] MEDS ORDERED: IPRATROPIUM BROMIDE (0.02%) 0.5MG/2.5ML NEB HHN STA (13:53)
[2021-06-08] MEDS ORDERED: ALBUTEROL (0.083%) 2.5MG/3ML NEB HHN STA (13:53)
[2021-06-08] MEDS ORDERED: METHYLPREDNISOLONE SOD SUCC 125 MG/2 ML VIAL IV STA (13:53)
[2021-06-08] MEDS ORDERED: MAGNESIUM 2 G PREMIX 50 ML IV ONE (14:00)
[2021-06-08 16:57] LABS: CHLORIDE 110 mEq/L (98-107)
[2021-06-08 17:12] LABS: BASOPHILS % 0.3 % (0.0-2.0); EOSINOPHILS % 0.3 % (0.0-5.0); HEMATOCRIT. 44.9 % (42.0-52.0); HEMOGLOBIN. 14.4 g/dL (14.0-18.0); LYMPHOCYTES % 16.8 % (20.0-50.0); MEAN CORPUSCULAR HEMOGLOBIN 29.1 pg (28.0-32.0); MEAN CORPUSCULAR VOLUME 90.7 fL (80.0-94.0); MEAN PLATELET VOLUME 8.2 fl (7.4-10.4); MONOCYTES % 8.2 % (2.0-8.0); NEUTROPHILS % 74.4 % (40.0-76.0); PLATELET 238 x1000/uL (130-400); RED BLOOD CELL COUNT 4.95 mill/uL (4.7-6.1); RED CELL DISTRIBUTION WIDTH 16.2 % (11.6-14.6)
[2021-06-08 23:04] VITALS: BP 128/96
[2021-06-09] MEDS ORDERED: NON FORMULARY PATIENT HOME MED XX SCH
[2021-06-09] MEDS ORDERED: ONDANSETRON HCL 4MG/2ML INJ IV PRN
[2021-06-09] MEDS ORDERED: IPRATROPIUM/ALBUTEROL 0.5-3(2.5)MG/3ML NEB HHN PRN
[2021-06-09] MEDS ORDERED: ACETAMINOPHEN 325MG TABLET PO PRN
[2021-06-09 01:15] VITALS: BP 128/96
[2021-06-09] MEDS: IPRATROPIUM/ALBUTEROL 0.5-3(2.5)MG/3ML NEB HHN SCH ×6 (02:41→21:03)
[2021-06-09] MEDS: LEVOFLOXACIN 500MG PREMIX 100 ML IV SCH (03:40)
[2021-06-09 04:00] VITALS: BP 121/90
[2021-06-09] MEDS: METHYLPREDNISOLONE SOD SUCC 40 MG/ML VIAL IV SCH ×4 (05:42→21:20)
[2021-06-09] MEDS ORDERED: ALBUTEROL (0.083%) 2.5MG/3ML NEB HHN SCH (06:00)
[2021-06-09 08:00] VITALS: BP 118/74
[2021-06-09] MEDS ORDERED: ENOXAPARIN 40MG/0.4ML SYR SUBCUT SCH (09:00)
[2021-06-09] MEDS ORDERED: ENOXAPARIN 30MG/0.3ML SYR SUBCUT SCH (09:00)
[2021-06-09] MEDS ORDERED: NALOXONE HCL 0.4MG/ML VIAL IV PRN (09:45)
[2021-06-09] MEDS: FAMOTIDINE 20MG TABLET PO SCH ×2 (10:21→21:20)
[2021-06-09] MEDS: HYDROCODONE/ACETAMINOPHEN 5/325MG TABLET PO PRN ×2 (10:21→17:58)
[2021-06-09] MEDS: BUDESONIDE 0.5MG/2ML NEB HHN SCH ×2 (11:23→21:04)
[2021-06-09] MEDS ORDERED: ENOXAPARIN 60MG/0.6ML SYR SUBCUT SCH (11:30)
[2021-06-09 12:00] VITALS: BP 123/91
[2021-06-09] MEDS ORDERED: INFLUENZA VACCINE 05/PF 0.5 ML SYRINGE IM ONE (12:00)
[2021-06-09] MEDS ORDERED: PNEUMOCOCCAL 23-VAL P-SAC VAC 0.5 ML IM ONE (12:00)
[2021-06-09] MEDS: DILTIAZEM HCL 60MG TABLET PO SCH (15:47)
[2021-06-09] MEDS: FUROSEMIDE 40MG/4ML VIAL IVP SCH (15:47)
[2021-06-09 16:00] VITALS: BP 120/91
[2021-06-09 17:28] LABS: *AMPHETAMINES SCREEN URINE NEGATIVE (NEGATIVE); *BARBITURATES SCREEN URINE NEGATIVE (NEGATIVE); *BENZODIAZEPINES SCREEN URINE NEGATIVE (NEGATIVE); *COCAINE SCREEN URINE PRESUMTIVE POSITIVE (NEGATIVE); METHADONE URINE SCREEN NEGATIVE (NEGATIVE)
[2021-06-09 17:29] LABS: CANNABINOID URINE SCREEN NEGATIVE (NEGATIVE); OPIATES URINE SCREEN PRESUMTIVE POSITIVE (NEGATIVE); PHENCYCLIDINE URINE SCREEN PRESUMTIVE POSITIVE (NEGATIVE)
[2021-06-09] MEDS ORDERED: DILTIAZEM HCL 60MG TABLET PO SCH (18:00)
[2021-06-09 20:00] VITALS: BP 102/51
[2021-06-09] MEDS ORDERED: ENOXAPARIN 100MG/ML SYR SUBCUT SCH (21:00)
[2021-06-09] MEDS: APIXABAN 5 MG TABLET PO SCH (21:20)
[2021-06-10] VITALS: BP 101/75
[2021-06-10] MEDS: IPRATROPIUM/ALBUTEROL 0.5-3(2.5)MG/3ML NEB HHN SCH ×7 (00:29→23:46)
[2021-06-10] MEDS: LEVOFLOXACIN 500MG PREMIX 100 ML IV SCH (01:01)
[2021-06-10 04:00] VITALS: BP 96/68
[2021-06-10] MEDS: DILTIAZEM HCL 60MG TABLET PO SCH ×5 (06:00→23:51)
[2021-06-10] MEDS: METHYLPREDNISOLONE SOD SUCC 40 MG/ML VIAL IV SCH ×3 (06:48→21:40)
[2021-06-10 08:00] VITALS: BP 133/90
[2021-06-10] MEDS: APIXABAN 5 MG TABLET PO SCH ×2 (08:51→21:40)
[2021-06-10] MEDS: FUROSEMIDE 40MG/4ML VIAL IVP SCH (08:51)
[2021-06-10] MEDS: FAMOTIDINE 20MG TABLET PO SCH ×2 (08:51→21:40)
[2021-06-10 12:00] VITALS: BP 124/81
[2021-06-10] MEDS: HYDROCODONE/ACETAMINOPHEN 5/325MG TABLET PO PRN ×2 (13:40→21:40)
[2021-06-10 16:00] VITALS: BP 117/75
[2021-06-10] MEDS: LEVOFLOXACIN 500MG TABLET PO SCH (17:43)
[2021-06-10] MEDS: BUDESONIDE 0.5MG/2ML NEB HHN SCH (19:46)
[2021-06-10 20:00] VITALS: BP 126/85
[2021-06-11] VITALS: BP 120/90
[2021-06-11] MEDS: IPRATROPIUM/ALBUTEROL 0.5-3(2.5)MG/3ML NEB HHN SCH ×5 (03:56→21:25)
[2021-06-11] MEDS: HYDROCODONE/ACETAMINOPHEN 5/325MG TABLET PO PRN ×3 (03:57→21:13)
[2021-06-11 04:00] VITALS: BP 106/72
[2021-06-11] MEDS: DILTIAZEM HCL 60MG TABLET PO SCH ×3 (06:00→18:03)
[2021-06-11] MEDS: METHYLPREDNISOLONE SOD SUCC 40 MG/ML VIAL IV SCH ×3 (06:07→22:00)
[2021-06-11 08:00] VITALS: BP 112/91
[2021-06-11] MEDS: BUDESONIDE 0.5MG/2ML NEB HHN SCH ×2 (08:24)
[2021-06-11] MEDS: LEVOFLOXACIN 500MG TABLET PO SCH (08:52)
[2021-06-11] MEDS: APIXABAN 5 MG TABLET PO SCH ×2 (08:52→21:12)
[2021-06-11] MEDS: FUROSEMIDE 40MG/4ML VIAL IVP SCH (08:52)
[2021-06-11] MEDS: FAMOTIDINE 20MG TABLET PO SCH ×2 (08:52→21:12)
[2021-06-11 12:00] VITALS: BP 105/67
[2021-06-11 16:00] VITALS: BP 134/101
[2021-06-11 20:00] VITALS: BP 128/106
[2021-06-12] VITALS: BP 136/114
[2021-06-12 04:00] VITALS: BP 161/107
[2021-06-12] MEDS: IPRATROPIUM/ALBUTEROL 0.5-3(2.5)MG/3ML NEB HHN SCH ×5 (04:54→21:06)
[2021-06-12] MEDS: DILTIAZEM HCL 60MG TABLET PO SCH ×5 (05:51→23:37)
[2021-06-12] MEDS: METHYLPREDNISOLONE SOD SUCC 40 MG/ML VIAL IV SCH ×3 (05:52→21:21)
[2021-06-12 08:00] VITALS: BP 144/107
[2021-06-12] MEDS: BUDESONIDE 0.5MG/2ML NEB HHN SCH (08:22)
[2021-06-12] MEDS: HYDROCODONE/ACETAMINOPHEN 5/325MG TABLET PO PRN ×4 (08:38→23:37)
[2021-06-12] MEDS: FUROSEMIDE 40MG/4ML VIAL IVP SCH (08:38)
[2021-06-12] MEDS: APIXABAN 5 MG TABLET PO SCH ×2 (08:38→21:21)
[2021-06-12] MEDS: FAMOTIDINE 20MG TABLET PO SCH ×2 (08:38→21:21)
[2021-06-12] MEDS: LEVOFLOXACIN 500MG TABLET PO SCH (11:44)
[2021-06-12 12:00] VITALS: BP 134/103
[2021-06-12 16:00] VITALS: BP 112/82
[2021-06-12 17:31] LABS: HEMATOCRIT. 45.6 % (42.0-52.0); HEMOGLOBIN. 14.7 g/dL (14.0-18.0); MEAN CORPUSCULAR HEMOGLOBIN 29.1 pg (28.0-32.0); MEAN CORPUSCULAR VOLUME 90.4 fL (80.0-94.0); MEAN PLATELET VOLUME 7.8 fl (7.4-10.4); PLATELET 251 x1000/uL (130-400); RED BLOOD CELL COUNT 5.04 mill/uL (4.7-6.1); RED CELL DISTRIBUTION WIDTH 16.4 % (11.6-14.6)
[2021-06-12 17:45] LABS: CHLORIDE 101 mEq/L (98-107)
[2021-06-12 20:00] VITALS: BP 123/68
[2021-06-12] MEDS: CARVEDILOL 6.25 MG TABLET PO SCH (21:22)
[2021-06-12 21:24] LABS: PLATELET ESTIMATE NORMAL
[2021-06-13] VITALS: BP 130/67
[2021-06-13] MEDS: IPRATROPIUM/ALBUTEROL 0.5-3(2.5)MG/3ML NEB HHN SCH ×4 (00:15→11:55)
[2021-06-13 04:00] VITALS: BP 113/62
[2021-06-13] MEDS: DILTIAZEM HCL 60MG TABLET PO SCH ×2 (05:10→13:23)
[2021-06-13] MEDS: METHYLPREDNISOLONE SOD SUCC 40 MG/ML VIAL IV SCH ×2 (05:10→13:23)
[2021-06-13 07:45] VITALS: BP 112/54
[2021-06-13] MEDS ORDERED: LOSARTAN POTASSIUM 25 MG TABLET PO SCH (09:00)
[2021-06-13] MEDS: FUROSEMIDE 40MG/4ML VIAL IVP SCH (09:27)
[2021-06-13] MEDS: FAMOTIDINE 20MG TABLET PO SCH (09:29)
[2021-06-13] MEDS: APIXABAN 5 MG TABLET PO SCH (09:29)
[2021-06-13] MEDS: CARVEDILOL 6.25 MG TABLET PO SCH (09:29)
[2021-06-13] MEDS: HYDROCODONE/ACETAMINOPHEN 5/325MG TABLET PO PRN (09:29)
[2021-06-13 12:59] VITALS: BP 137/94
[2021-06-13 15:40] VITALS: BP 137/94
[2021-06-13] MEDS ORDERED: ALBU18HF2 IH (16:13)
[2021-06-13] MEDS ORDERED: DILT240C91 MT (16:14)
[2021-06-13] MEDS ORDERED: FURO-151 MT (16:14)
[2021-06-13] MEDS ORDERED: CARV12.545 MT (16:14)
[2021-06-13] MEDS ORDERED: APIX5TAB MT (16:14)
[2021-06-13] MEDS ORDERED: LOSA25TA26 MT (16:14)
== END 2021-06-13 16:25 | disposition home or self-care (01) | DRG 194 ==
LOC: ER 13:35 → 6WST 18:43 → ENRESERV 21:55
PROVIDERS: ADMIT Internal Medicine; ATTEND Internal Medicine
DX: I50.23 Acute on chronic systolic (congestive) heart failure (principal); E44.1 Mild protein-calorie malnutrition; J44.1 Chronic obstructive pulmonary disease with (acute) exacerbation; I42.9 Cardiomyopathy, unspecified; J68.0 Bronchitis and pneumonitis due to chemicals, gases, fumes and vapors; E87.1 Hypo-osmolality and hyponatremia; E87.8 Other disorders of electrolyte and fluid balance, not elsewhere classified; E66.9 Obesity, unspecified; E87.5 Hyperkalemia; I48.91 Unspecified atrial fibrillation; F17.210 Nicotine dependence, cigarettes, uncomplicated; Z20.822 Contact with and (suspected) exposure to COVID-19; Z60.2 Problems related to living alone; Z79.899 Other long term (current) drug therapy; Z68.32 Body mass index [BMI] 32.0-32.9, adult; Z88.8 Allergy status to other drugs, medicaments and biological substances; Z79.01 Long term (current) use of anticoagulants; Z71.3 Dietary counseling and surveillance; Z71.51 Drug abuse counseling and surveillance of drug abuser
CPT/HCPCS: 36415; 71045; 80048; 80053; 80305; 83880; 84132; 84484; 85025; 87426; 93005; 93306; 94640; 99285; C1893; J1650; J1940; J1956; J2920; J2930; J3475; J7626